=== PATIENT | female | born 1935 | race Caucasian/White ===

== ENCOUNTER 2018-05-22 10:00 | Inpatient (IN) ==
[2018-05-22] MEDS ORDERED: ALPRAZolam 1 MG TABLET PO PRN (12:42)
[2018-05-22] MEDS ORDERED: Nitroglycerin 0.4 MG TAB.SUBL SL PRN ×2 (12:53→13:56)
[2018-05-22] MEDS ORDERED: hydrALAZINE 25 MG TABLET PO SCH (13:00)
[2018-05-22] MEDS ORDERED: Lactulose Oral Soln 20 GM/30 ML UDC PO PRN (13:03)
[2018-05-22] MEDS ORDERED: Polyethylene Glycol 3350 255 GM POWDER PO ONE (13:34)
[2018-05-22] MEDS ORDERED: *HR* Promethazine 25 MG/ML VIAL IVP PRN (13:36)
[2018-05-22] MEDS: Diltiazem CD (24hr) 120 MG CAPSULE PO SCH (13:52)
--- NOTE | 2018-05-22 13:52 | General Surg History&Physical ---
Date of Encounter: 05/22/18 Time of Encounter: 13:49 Assessment and Plan (1) Fistula Current Visit: Yes Status: Acute Noted vesical vaginal fistula. She was seen by Dr. Hughes on 04/13/2018 (recommendations, risks, and benfits were reviewed with patient and her at that time and consent was signed) and surgery was scheduled , but patient did not complete bowel prep (pt is confused at baseline). Surgery was rescheduled to 05/23 and she was recommended to complete bowel prep as an inpatient. Will plan for robotic sigmoind colon resection, possible open w/repair of vesical vaginal fistula with Dr. Hughes on 05/23/2018. Previously signed consent is placed on the hard chart. Plan CLD NPO after 0001 Bowel prep including neomycin and flagyl IVF Continue home meds GI and DVT prophylaxis (2) ASHD (arteriosclerotic heart disease) Current Visit: Yes Status: Acute The assessment and plan as outlined above was discussed with the patient and/or family members who expressed understanding and agreement. All questions were answered. History of unspecified CHF. Will closely monitor Hold ASA tonight (3) Anemia Current Visit: No Status: Acute Continue to monitor Qualifiers: Anemia type: unspecified type Qualified Code(s): D64.9 - Anemia, u nspecified (4) CKD (chronic kidney disease) Current Visit: Yes Status: Chronic The assessment and plan as outlined above was discussed with the patient and/or family members who expressed understanding and agreement. All questions were answered. Continue to monitor. Qualifiers: Chronic kidney disease stage: stage 4 (severe) Qualified Code(s): N18.4 - Chronic kidney disease, stage 4 (severe) History of Present Illness Chief complaint: colo-Vesical vaginal fistula HPI: PMH, PSH, past social history reviewed per EMR Ms. Patle is a 82 year old female who presents for robotic sigmoid colon resection, possible open w/repair of vesical vaginal fistula with Dr. Hughes She was seen by Dr. Hughes on 04/13/2018 (recommendations, risks, and benefits were reviewed with patient and her at that time and consent was signed). Surgery was scheduled for , but patient did not complete bowel prep (pt has episodes of confusion at baseline). Surgery was rescheduled to 05/23 and she was recommended to complete bowel prep as an inpatient. She denies fever, chills, DON, dizziness, CP, SOB, abd pain, n/v/d, black, bloody, or tarry stool. She endorses episodes of constipation and stool after she urinates. She reports generalized weakness. Past Med Surg Social Fam HX - Past Medical History Source: old records reviewed Medical history: atrial fibrillation, CHF, COPD, diabetes, hyperlipidemia, hypertension, myocardial infarction, renal disease, thyroid disease, other Additional medical history: right breast surgery, chronic anemia, pe, breast cancer, A. fib, hypothyroid, lumbar fx Psychiatric history: no psych history - Past Surgical History Surgical History: cancer surgery, coronary bypass (CABG), hysterectomy, orthopedic, other, other Additional surgical history: triple bypass, shoulder replacement, bilateral masectomy - Social History Smoking Status: Never smoker Smokeless Tobacco Status: No Alcohol use: none Drug use: none - Family History Father Living Status: Hx Family Cardiac Disorders: Yes Mother Living Status: Hx Family Cardiac Disorders: Yes Brother Living Status: Hx Family Cancer: Yes (brain/ liver/ spine) Medications and Allergies ALPRAZolam [Xanax 1 MG Tablet] 1 mg PO BID PRN 01/20/18 [History] Albuterol Sulfate [Ventolin Hfa] 2 puff IH Q4HR PRN 01/20/18 [History] Aspirin [Lo-Dose Aspirin EC] 81 mg PO DAILY 01/20/18 [History] Atorvastatin [Lipitor] 40 mg PO HS 01/20/18 [History] Carvedilol [Coreg] 6.25 mg PO BID 01/20/18 [History] Cholecalciferol (D-3) [Vitamin D] 2,000 unit PO BID 01/20/18 [History] Insulin Aspart Prot/Insuln Asp [Novolog Mix 70-30 Flexpen Syrn] 12 unit SQ DAILY 01/20/18 [History] Isosorbide MONOnitrate (24 HR) [Imdur] 60 mg PO DAILY 01/20/18 [History] Levothyroxine [Synthroid] 75 mcg PO 0630 01/20/18 [History] Losartan Potassium [Cozaar] 50 mg PO BID 01/20/18 [History] Potassium Chloride [K-Tab ER] 20 meq PO TID 01/20/18 [History] hydrALAZINE [HydrALAZINE] 25 mg PO Q8H 01/20/18 [History] Furosemide [Lasix] 40 mg PO TID 02/03/18 [History] Nitroglycerin [Nitrostat] 0.4 mg SL PER PKG DI PRN 02/03/18 [History] Letrozole [Femara] 2.5 mg PO DAILY #30 tablet 02/07/18 [Rx] Insulin Aspart Prot/Insuln Asp [Novolog Mix 70-30 Flexpen Syrn] 16 unit SQ QPM 0 03/20/18 [History] Diltiazem CD (24hr) [Cardizem CD] 120 mg PO DAILY #1 cap.er.24h 03/21/18 [Rx] Lactulose 15 mg PO TID 05/09/18 [History] Lidocaine Patch [Lidoderm 5% patch] 1 patch TD Q12H PRN 05/09/18 [History] Oxycodone HCl/Acetaminophen [Percocet 10-325 mg Tablet] 1 tab PO Q6HR PRN 05/09/18 [History] Cyclobenzaprine HCl 5 mg PO HS PRN 05/22/18 [History] Allergy/AdvReac Type Severity Reaction Status Date / Time adhesive tape Allergy Blister Verified 05/09/18 07:24 hydrocodone [From [place]] Allergy See Verified 05/09/18 07:24 Comments iron Allergy Hives Verified 05/09/18 07:24 latex Allergy Blister Verified 05/09/18 07:24 Penicillins Allergy NAUSEA,SWEL Verified 05/09/18 07:24 LING zinc Allergy Blister Verified 05/09/18 07:24 Sulfa (Sulfonamide AdvReac Nausea Verified 05/09/18 07:24 Antibiotics) Review of Systems All systems PM: reviewed and no additional remarkable complaints except as stated All systems PM: The remainder of the systems were reviewed and are negative General Surgery Exam Initial Vital Signs Temp Pulse Resp BP Pulse Ox 98.3 F 72 19 149/71 98 05/22/18 10:05 05/22/18 10:05 05/22/18 10:05 05/22/18 10:05 05/22/18 10:05 - General physical appearance no distress, no pain - Neck trachea midline, no venous distension - Respiratory normal expansion, normal respiratory effort, clear to percussion, clear to auscultation - Cardiovascular Cardiovascular exam: Present: murmurs, distant heart sounds - Abdomen Abdomen general surgery: Present: bowel sounds present, soft, non tender - Integumentary Integumentary general surgery: Present: warm and dry - Neurologic Present: normal coordination, normal sensation - Musculoskeletal Present: normal posture - Psychiatric Psychiatric general surgery: Present: A&Ox3, appropriate Results - Labs 05/22/18 13:59 All other labs normal.
[2018-05-22 14:19] LABS: Basophils % 0.4 %; Eosinophils # 0.3 K/mcL (0.0-0.6); Eosinophils % 3.9 %; Hematocrit 28.1 % (35.3-44.9); Hemoglobin 8.4 g/dL (11.5-15.4); Immature Granulocytes % 1.1 % (0-4); Lymphocytes # 0.9 K/mcL (0.6-4.6); Lymphocytes % 12.9 %; Mean Corpuscular HGB Conc 29.9 g/dL (31.6-35.5); Mean Corpuscular Hemoglobin 25.1 pg (28.0-33.3); Mean Corpuscular Volume 84.1 fL (83.0-100.0); Monocytes # 0.6 K/mcL (0.0-1.3); Monocytes % 7.6 %; Neutrophils # 5.3 K/mcL (1.6-8.9); Platelet Count 465 K/mcL (140-400); Red Blood Count 3.34 M/mcL (3.82-4.97); Red Cell Distribution Width 16.3 % (11.5-14.5); Segmented Neutrophils % 74.1 %
[2018-05-22] MEDS: hydrALAZINE 25 MG TABLET PO SCH ×2 (14:22→21:02)
[2018-05-22] MEDS: metroNIDAZOLE 500 MG TABLET PO SCH ×3 (14:28→21:03)
[2018-05-22] MEDS: *HR* OxyCODONE/APAP 10/325 TABLET PO PRN (14:28)
[2018-05-22 14:29] LABS: Prothrombin Time 11.4 Seconds (9.4-12.1)
[2018-05-22 14:39] LABS: Calcium 9.5 mg/dL (8.6-10.3); Potassium 4.2 mEq/L (3.5-5.1)
[2018-05-22] MEDS ORDERED: Furosemide 40 MG TABLET PO SCH (15:00)
[2018-05-22] MEDS: 0.9 % Sodium Chloride 1,000 ML IVC SCH (17:07)
[2018-05-22] MEDS: Ondansetron 4 MG/2 ML VIAL IVP PRN (17:08)
[2018-05-22] MEDS: Furosemide 40 MG TABLET PO SCH (17:08)
[2018-05-22] MEDS ORDERED: Insulin NPH/REG 70/30 100 UNIT/ML (x5UNIT) SQ SCH (18:00)
--- NOTE | 2018-05-22 22:09 | Anesthesia Evaluation PreOp ---
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%), HTN, Hyperlipidemia, Arrhythmia (A fib), Cardiac Surgery (bypass x 3 in 2014), Other (moderate to severe pulmonary htn) Pulmonary History: COPD HEALTH CLINICIAN History: Denies Any Significant HX Other Medical History: Renal (stage IV ckd), Thyroid (hypothyroidism) Anesthesia History: Past Anesthesia (R total knee, L total shoulder, kypho, hysterectomy, cardiac bypass) Alcohol Use: none Drug use: none Medications and Allergies ALPRAZolam [Xanax 1 MG Tablet] 1 mg PO BID PRN 01/20/18 [History] Albuterol Sulfate [Ventolin Hfa] 2 puff IH Q4HR PRN 01/20/18 [History] Aspirin [Lo-Dose Aspirin EC] 81 mg PO DAILY 01/20/18 [History] Atorvastatin [Lipitor] 40 mg PO HS 01/20/18 [History] Carvedilol [Coreg] 6.25 mg PO BID 01/20/18 [History] Cholecalciferol (D-3) [Vitamin D] 2,000 unit PO BID 01/20/18 [History] Insulin Aspart Prot/Insuln Asp [Novolog Mix 70-30 Flexpen Syrn] 12 unit SQ DAILY 01/20/18 [History] Isosorbide MONOnitrate (24 HR) [Imdur] 60 mg PO DAILY 01/20/18 [History] Levothyroxine [Synthroid] 75 mcg PO 0630 01/20/18 [History] Losartan Potassium [Cozaar] 50 mg PO BID 01/20/18 [History] Potassium Chloride [K-Tab ER] 20 meq PO TID 01/20/18 [History] hydrALAZINE [HydrALAZINE] 25 mg PO Q8H 01/20/18 [History] Furosemide [Lasix] 40 mg PO TID 02/03/18 [History] Nitroglycerin [Nitrostat] 0.4 mg SL PER PKG DI PRN 02/03/18 [History] Letrozole [Femara] 2.5 mg PO DAILY #30 tablet 02/07/18 [Rx] Insulin Aspart Prot/Insuln Asp [Novolog Mix 70-30 Flexpen Syrn] 16 unit SQ QPM 03/20/18 [History] Diltiazem CD (24hr) [Cardizem CD] 120 mg PO DAILY #1 cap.er.24h 03/21/18 [Rx] Lactulose 15 mg PO TID 05/09/18 [History] Lidocaine Patch [Lidoderm 5% patch] 1 patch TD Q12H PRN 05/09/18 [History] Oxycodone HCl/Acetaminophen [Percocet 10-325 mg Tablet] 1 tab PO Q6HR PRN 05/09/18 [History] Cyclobenzaprine HCl 5 mg PO HS PRN 05/22/18 [History] Allergy/AdvReac Type Severity Reaction Status Date / Time adhesive tape Allergy Blister Verified 05/09/18 07:24 hydrocodone [From [place]] Allergy See Verified 05/09/18 07:24 Comments iron Allergy Hives Verified 05/09/18 07:24 latex Allergy Blister Verified 05/09/18 07:24 Penicillins Allergy NAUSEA,SWEL Verified 05/09/18 07:24 LING zinc Allergy Blister Verified 05/09/18 07:24 Sulfa (Sulfonamide AdvReac Nausea Verified 05/09/18 07:24 Antibiotics) - Meds/Allergy Pre-op Review Medications Reviewed: Yes Allergies Reviewed: Yes Beta Blockers on Current Med List: Yes (coreg) If Beta Blockers taken, Date/Time (Last Dose taken): 05-22-18 coreg 17:08 Anesthesia Results - Labs 05/22/18 13:59 05/22/18 13:59 - Imaging EKG: report reviewed, image reviewed (LIMB LEAD REVERSAL LIKEY, PLEASE REPEAT ECG. SINUS BRADYCARDIA WITH MARKED SINUS ARRHYTHMIA INTRAVENTRICULAR CONDUCTION DELAY POSSIBLE ANTERIOR MYOCARDIAL INFARCTION, age indeterminate) Additional studies: 04/23/2018 Impression: Pharmacologic stress ECG is non-diagnostic for ischemia due to submaximal HR. Gated EF = 50%. Medium sized, moderate to severe intensity, fixed defect in the mid to apical inferior, apical septal, and apical lateral segments suggestive of a prior infarct. Perfusion imaging was negative for ischemia. 04/16/2018 Impressions: LVEF 45%. Not all LV segments were well visualized, but overall LVEF appeared mildly reduced. Mildly dilated left ventricle. Mild concentric left ventricular hypertrophy. Mild left ventricular diastolic dysfunction. Atypical septal motion consistent with post-operative status. Normal right ventricular structure and function. Mild mitral regurgitation. Moderate tricuspid regurgitation. Moderate-severe pulmonary hypertension. Anesthesia Exam Last Vital Signs Temp 97.5 F L 05/22/18 20:24 Pulse 83 05/22/18 20:24 Resp 14 05/22/18 20:24 BP 112/58 05/22/18 20:24 Pulse Ox 99 05/22/18 20:24 Weight: 76 kg - HEENT Pupil (Motor): Pupils equal, EOMI Mallampati: II Teeth: Missing, Poor dentition Oral Opening: Greater than 3 - HEALTH CLINICIAN LOC: Oriented - Cardiac Rhythm: Regular Murmur: None - Pulmonary Breath Sounds: bilateral Clear Respiratory Effort: Symmetrical Anesthesia Assess/Plan ASA Score: 4 Anesthetic Plan: General Monitoring Plan: Standard Monitors Recovery Plan: PACU <Yoni Lynne - Last Filed: 05/23/18 13:02> Date of Encounter: 05/23/18 Time of Encounter: 12:58 Anesthesia Results - Labs 05/22/18 13:59 05/22/18 13:59 Laboratory Last Values WBC 7.2 K/mcL (4.3-11.1) 05/22/18 13:59 RBC 3.34 M/mcL (3.82-4.97) L 05/22/18 13:59 Hgb 8.4 g/dL (11.5-15.4) L 05/22/18 13:59 Hct 28.1 % (35.3-44.9) L 05/22/18 13:59 MCV 84.1 fL (83.0-100.0) 05/22/18 13:59 MCH 25.1 pg (28.0-33.3) L 05/22/18 13:59 MCHC 29.9 g/dL (31.6-35.5) L 05/22/18 13:59 RDW 16.3 % (11.5-14.5) H 05/22/18 13:59 Plt Count 465 K/mcL (140-400) H 05/22/18 13:59 MPV 9.0 fL (9.4-12.4) L 05/22/18 13:59 Immature Gran % 1.1 % (0-4) 05/22/18 13:59 Seg Neutrophils % 74.1 % 05/22/18 13:59 Lymphocytes % 12.9 % 05/22/18 13:59 Monocytes % 7.6 % 05/22/18 13:59 Eosinophils % 3.9 % 05/22/18 13:59 Basophils % 0.4 % 05/22/18 13:59 Neutrophils # 5.3 K/mcL (1.6-8.9) 05/22/18 13:59 Lymphocytes # 0.9 K/mcL (0.6-4.6) 05/22/18 13:59 Monocytes # 0.6 K/mcL (0.0-1.3) 05/22/18 13:59 Eosinophils # 0.3 K/mcL (0.0-0.6) 05/22/18 13:59 Basophils # 0.0 K/mcL (0.0-0.2) 05/22/18 13:59 PT 11.4 Seconds (9.4-12.1) 05/22/18 13:59 INR 1.0 05/22/18 13:59 APTT 32.0 Seconds (26.0-36.0) 05/22/18 13:59 Sodium 134 mEq/L (136-145) L 05/22/18 13:59 Potassium 4.2 mEq/L (3.5-5.1) 05/22/18 13:59 Chloride 98 mEq/L (98-107) 05/22/18 13:59 Carbon Dioxide 26 mEq/L (23-29) 05/22/18 13:59 BUN 33 mg/dL (8-23) H 05/22/18 13:59 Creatinine 2.14 mg/dL (0.60-1.20) H 05/22/18 13:59 Est GFR ( Amer) 27 (> 60) L 05/22/18 13:59 Est GFR (Non-Af Amer) 22 (> 60) L 05/22/18 13:59 BUN/Creatinine Ratio 15 (6-26) 05/22/18 13:59 Glucose 204 mg/dL (70-105) H 05/22/18 13:59 POC Glucose 141 mg/dL (70-99) H 05/23/18 10:28 Calculated Osmolality 291 (280-300) 05/22/18 13:59 Calcium 9.5 mg/dL (8.6-10.3) 05/22/18 13:59 Prealbumin 13.5 mg/dL (17.0-34.0) L 05/22/18 13:59 Blood Type A POSITIVE 05/23/18 04:23 Antibody Screen NEGATIVE 05/23/18 04:23 Anesthesia Exam Vital Signs/O2 Sat/Glucose, Most Recent Temp Pulse Resp BP Pulse Ox 98.3 F 79 20 155/64 92 05/23/18 10:40 05/23/18 10:40 05/23/18 10:40 05/23/18 10:40 05/23/18 10:40 Blood Glucose* 141 Weight: 76 kg - BMI 28 NPO (# of Hours): 8 - Additional Findings Active Medications Albuterol Sulfate (Albuterol Inhaler) 2 puff IH Q4HR PRN PRN Reason: wheezing/shortness of breath Stop: 11/21/18 12:43 Alprazolam (Xanax) 1 mg PO BID PRN; Protocol PRN Reason: Anxiety Stop: 11/21/18 12:43 Atorvastatin Calcium (Lipitor) 40 mg PO HS [facility] Stop: 11/21/18 21:01 Last Admin: 05/22/18 21:02 Dose: 40 mg Carvedilol (Coreg) 6.25 mg PO BIDWM [facility]; Protocol Stop: 11/21/18 17:01 Last Admin: 05/23/18 07:41 Dose: 6.25 mg Cyclobenzaprine HCl (Flexeril) 5 mg PO HS PRN PRN Reason: Muscle Spasm Diltiazem HCl (Cardizem Cd) 120 mg PO DAILY [facility] Stop: 11/21/18 12:46 Last Admin: 05/23/18 07:41 Dose: 120 mg Furosemide (Lasix) 40 mg PO TIDDIURETIC [facility] Stop: 11/21/18 17:01 Last Admin: 05/23/18 08:23 Dose: Not Given Hydralazine HCl (Hydralazine) 25 mg PO TID [facility] Stop: 11/21/18 15:01 Last Admin: 05/23/18 07:42 Dose: 25 mg Sodium Chloride (0.9 % Sodium Chloride) 1,000 mls @ 75 mls/hr IVC .[id number] [facility] Stop: 11/21/18 13:46 Last Admin: 05/22/18 17:07 Dose: 75 mls/hr Insulin Isophane/Insulin Regular (Humulin 70/30 Vial) 12 unit SQ 0730 [facility] Stop: 11/22/18 07:31 Last Admin: 05/23/18 08:14 Dose: Not Given Insulin Isophane/Insulin Regular (Humulin 70/30 Vial) 16 unit SQ 1630 [facility] Stop: 11/22/18 16:31 Isosorbide Mononitrate (Imdur) 60 mg PO DAILY [facility] Stop: 11/22/18 09:01 Last Admin: 05/23/18 07:42 Dose: 60 mg Lactulose (Lactulose) 15 gm PO HS PRN PRN Reason: Constipation Stop: 11/21/18 13:04 Letrozole (Femara) 2.5 mg PO DAILY [facility] Stop: 11/22/18 09:01 Last Admin: 05/23/18 07:46 Dose: 2.5 mg Levothyroxine Sodium (Synthroid) 75 mcg PO 0630 [facility] Stop: 11/22/18 06:31 Last Admin: 05/23/18 05:53 Dose: 75 mcg Losartan Potassium (Cozaar) 50 mg PO BID [facility] Stop: 11/21/18 21:01 Last Admin: 05/23/18 09:54 Dose: Not Given Metronidazole (Flagyl) 500 mg PO 1400,1500,2200 [facility]; Protocol Stop: 05/24/18 23:00 Last Admin: 05/22/18 21:03 Dose: 500 mg Neomycin Sulfate (Neomycin) 500 mg PO 1400,1500,2200 [facility] Stop: 05/24/18 23:00 Last Admin: 05/22/18 21:00 Dose: 500 mg Ondansetron HCl (Zofran) 4 mg IVP Q6HR PRN PRN Reason: Nausea And Vomiting Stop: 11/21/18 13:37 Last Admin: 05/23/18 07:46 Dose: 4 mg Oxycodone/Acetaminophen (Percocet 10/325) 1 each PO Q6HR PRN PRN Reason: mild to moderate pain Stop: 11/21/18 12:54 Last Admin: 05/23/18 07:38 Dose: 1 each Pantoprazole Sodium (Protonix) 40 mg IVP DAILY [facility] Stop: 11/22/18 09:01 Last Admin: 05/23/18 07:46 Dose: 40 mg Anesthesia Assess/Plan Monitoring Plan: A-Line, CVC Anes Supervising Prov Stmt: PATIENT WILL PROBABLY NEED PRBC TRANSFUSION. POSSIBLE POST OP MECH VENTILATION, POSSIBLE ICU ADMISSION. Patient informed and consented. Risks, benefits, and alternatives discussed. Patient wishes to proceed.
[2018-05-23] MEDS: Cholecalciferol (D-3) 1,000 UNIT TABLET PO SCH ×3 (05:32→09:54)
[2018-05-23] MEDS: *HR* OxyCODONE/APAP 10/325 TABLET PO PRN ×2 (07:38→23:20)
[2018-05-23] MEDS: Diltiazem CD (24hr) 120 MG CAPSULE PO SCH (07:41)
[2018-05-23] MEDS: Furosemide 40 MG TABLET PO SCH ×3 (07:42→19:04)
[2018-05-23] MEDS: hydrALAZINE 25 MG TABLET PO SCH ×3 (07:42→19:06)
[2018-05-23] MEDS: Ondansetron 4 MG/2 ML VIAL IVP PRN (07:46)
[2018-05-23] MEDS: Insulin NPH/REG 70/30 100 UNIT/ML (x5UNIT) SQ SCH (08:14)
[2018-05-23] MEDS ORDERED: Letrozole 2.5 MG TABLET PO SCH (09:00)
[2018-05-23] MEDS ORDERED: Insulin NPH/REG 70/30 100 UNIT/ML (x5UNIT) SQ SCH ×2 (09:00→16:30)
[2018-05-23] MEDS ORDERED: Pantoprazole 40 MG VIAL IVP SCH (09:00)
[2018-05-23] MEDS ORDERED: Aspirin Enteric Coated 81 MG Tablet PO SCH (09:00)
[2018-05-23] MEDS ORDERED: Isosorbide MONOnitrate (24 HR) 60 MG TAB.ER.24H PO SCH (09:00)
[2018-05-23] MEDS ORDERED: Heparin 1,000 UNITS/500 mL 500 ML ONE (12:41)
[2018-05-23] MEDS ORDERED: CefOXitin 2,000 MG VIAL ONE (13:21)
--- NOTE | 2018-05-23 14:27 | Anesthesia Procedures ---
Date of Encounter: 05/23/18 Time of Encounter: 14:22 Procedures: Anesthesia - Arterial Line Consent obtained: written consent Time out performed: Yes Sedation: Versed (mg): 1 Supplemental Oxygen via Nasal Cannula (L/min): 2 Local Anesthetic: Lidocaine 1% Amount of Anesthetic used (mls): 2 Size (Gauge): 20 Length (inches): 1 3/4 Technique Used: sterile prep, direct puncture technique (20 ga Arrow catheter over needle and guidewire) Post-Procedure: line taped into place Patient tolerated procedure: well Complications: none Site: Radial L - Central Line Placement Right SC Consent obtained: written consent Time out performed: Yes Patient placed on monitor/pulse ox: Yes Supplemental Oxygen via Nasal Cannula (L/min): 2 MD prep: mask, gown, gloves, other ([facility] hand hygiene, skull cap) Central line prep: Chlorhexidine scrub, sterile drapes applied (Full body drape) Local Anesthetic Used: Lidocaine 1% Amount of Anesthetics Used (mls): 5 Technique: Seldinger (Difficult placement, vein punctures x3, only able to pass wire on third attempt. Suspect narrow SC vein. ) Lumen Inserted: triple Size / Length: 7 Fr / 16 cm (Pressure Injectable) Post procedure: sutured in place (3/0 silk suture), good blood return, all ports aspirated, flushed, capped, sterile dressing applied (with [facility] biopatch) Post procedure x-ray: tip of catheter in good position, no pneumothorax seen Patient tolerated procedure: well Complications: none
[2018-05-23] MEDS ORDERED: Isovue-300 150 ML INFUS..BTL ONE (16:43)
[2018-05-23] MEDS ORDERED: SUGAMMADEX SODIUM 500 MG/5 ML VIAL IV ONE (17:09)
--- NOTE | 2018-05-23 17:18 | Operative Note ---
Date of procedure: 05/23/18 Pre-op diagnosis: Colovaginal and Colovesical fistula Post-op diagnosis: same Procedure: Cystoscopy, bilateral ureteral catheterization Anesthesia: GETA Surgeon: Bin Dozier Was there an student assistant present: No Estimated blood loss (cc): 0 Specimen: none Condition: stable Disposition: PACU Procedure in Detail: An 82-year-old lady undergoing a robotic surgical address of colovaginal and colovesical fistulas by Dr. Hughes. Due to dissection close to the right ureter I was asked for intraoperative consultation. I entered the operative theratre and viewed the anatomy from the robotic camera. No apparent ureteral injury was immediately evident on gross inspection. I filled the bladder by guerrero and no spillage into the operative field. Based on the complex nature of the procedure, significant perivesical and periureteral dissection in inflammation, it was my recommendation to place bilateral ureteral stents with drainage into a guerrero catheter and to maintain this type of drainage for 7-10 days in a effort to divert as much urine as possible from the bladder and to maintain upper tract drainage. Dr. Hughes agreed. Based on these findings the following procedure was recommended. The cystoscope was inserted into the urethra and advanced into the bladder. No urethral abnormalities were appreciated. The bladder had no suspicious lesion for cancer. Immediately posterior and slightly to the left there was a small inflammatory area without fistula. The ureteral orifices were identified bilaterally. 5 syriac open ended catheters were advance to 23cm bilaterally. The cystoscope was removed. A guerrero was placed and secured with saline in the balloon. The open-ended cahteters were tunneled through the guerrero into the drainage tubing. The catheters were secured to the guerrero with 2 silk ligatures. This ended the urologic portion of the operative procedure. The patent was returned to the care of Dr. Hughes for the completion of the primary procedure. There were no complications. No blood was lost. Urologic surgery was well t olerated.
--- NOTE | 2018-05-23 17:23 | Operative Note ---
Date of procedure: 05/23/18 Pre-op diagnosis: Colovaginal fistula Post-op diagnosis: same Procedure: Robotic sigmoid resection with ruvalcaba's Lysis of adhesions x 1 hour Anesthesia: MILAN Surgeon: Bill Hughes Was there an blacksmith assistant present: Yes Glass Cleaning Machine Tender: Chelsi Camacho Estimated blood loss (cc): 25 Specimen: sigmoid colon Condition: stable Disposition: same day Procedure in Detail: After informed consent, the patient was taken the operating room placed in supine position. After adequate sedation anesthesia she was placed in lithotomy position. She had radha stool draining from her vagina. Patient underwent placement of a Piña catheter. Once catheter was in place the abdomen was prepped and draped. 2 towel clamps are placed at the umbilicus and a Verres needle was inserted and the abdomen. Pneumoperitoneum was created. 12 mm zeenat kunal was then inserted under direct visualization. Once in place additional 8 mm cannulas 2 were placed. A 13 mm cannulas placed as well as the right lower quadrant. Once all ports were placed in the robot was docked over the patient's right hip. Lisinopril adhesions 1 hours performed to free the omentum as well as the sigmoid colon from the dome of the bladder and the left hemipelvis. Sharp dissection was carried out with robotic scissors using sharp and electrocautery and the cut mode. The inferior mesenteric artery was identified and it was taken with a vessel sealer. The left ureter was then identified coursing over the left iliac artery. He was kept out of harm's way and dissected free of some significant inflammation identified at the sigmoid colon. The dissection was carried out in the sacral hollow and then anteriorly as well between the posterior vagina. There was a significant opening into the vaginal wall which had radha stool and food material identified at its opening. This was retrieved. Once a clean plane was identified in the rectum it was stapled with a reaming load utilizing 45 mm loads. This formed 3 and it was eventually resected pelvis. Due to the intense inflammation and the large opening in the vagina made decision to perform an end ostomy. An intraoperative consultation was asked of Dr. Dozier. He was a perform cystoscopy and place ureteral stents as well as a Piña catheter for drainage of the bladder. We did test the bladder intraoperatively and did not identify any leakage of saline from its dome. Once this was completed then a ostomy site was created on the left abdominal wall colon was retrieved through this opening. A Simeon bowel clamp was used to secure the proximal portion of colon was transected and the specimen was sent to pathology. The ostomy was then matured onto the left abdominal wall. The 12 mm cannula site and 13 mm cannula site were closed with 0 Vicryl sutures. A drain was placed and brought out through one of the 8 mm sites. All incisions are closed with nikki.
[2018-05-23] MEDS ORDERED: *HR* OxyCODONE Immed Rel 5 MG TABLET PO PRN (17:59)
[2018-05-23] MEDS ORDERED: *HR* Promethazine 25 MG/ML VIAL IVP PRN ×2 (17:59→19:10)
[2018-05-23] MEDS ORDERED: Ondansetron 4 MG/2 ML VIAL IVP ONE (17:59)
[2018-05-23] MEDS ORDERED: *HR* HYDROmorphone (PF) 1 MG/ML SYRINGE IVP PRN (17:59)
[2018-05-23] MEDS: 0.9 % Sodium Chloride 1,000 ML IVC SCH ×2 (19:03→20:40)
[2018-05-23] MEDS: metroNIDAZOLE 500 MG TABLET PO SCH (19:04)
[2018-05-23] MEDS ORDERED: Lactulose Oral Soln 20 GM/30 ML UDC PO PRN (19:10)
[2018-05-23] MEDS ORDERED: Nitroglycerin 0.4 MG TAB.SUBL SL PRN (19:10)
[2018-05-23] MEDS: ALPRAZolam 1 MG TABLET PO PRN (20:40)
[2018-05-23] MEDS ORDERED: metroNIDAZOLE 500 MG TABLET PO SCH (22:00)
[2018-05-24] MEDS ORDERED: traMADol 50 MG TABLET PO ONE (01:47)
[2018-05-24] MEDS: *HR* OxyCODONE/APAP 10/325 TABLET PO PRN ×3 (05:59→20:55)
[2018-05-24] MEDS: hydrALAZINE 25 MG TABLET PO SCH ×4 (06:00→20:56)
[2018-05-24 06:32] LABS: Basophils % 0.1 %; Hematocrit 24.7 % (35.3-44.9); Hemoglobin 7.4 g/dL (11.5-15.4); Immature Granulocytes % 0.4 % (0-4); Lymphocytes # 0.4 K/mcL (0.6-4.6); Lymphocytes % 2.1 %; Mean Corpuscular Hemoglobin 25.5 pg (28.0-33.3); Mean Corpuscular Volume 85.2 fL (83.0-100.0); Mean Platelet Volume 9.3 fL (9.4-12.4); Monocytes # 0.3 K/mcL (0.0-1.3); Monocytes % 1.8 %; Neutrophils # 16.4 K/mcL (1.6-8.9); Platelet Count 435 K/mcL (140-400); Red Cell Distribution Width 16.3 % (11.5-14.5); Segmented Neutrophils % 95.6 %
[2018-05-24 06:41] LABS: Calcium 8.8 mg/dL (8.6-10.3); Potassium 4.6 mEq/L (3.5-5.1)
[2018-05-24] MEDS: Letrozole 2.5 MG TABLET PO SCH (08:18)
[2018-05-24] MEDS: Pantoprazole 40 MG VIAL IVP SCH (08:18)
[2018-05-24] MEDS: Furosemide 40 MG TABLET PO SCH ×3 (08:21→18:19)
[2018-05-24] MEDS: Diltiazem CD (24hr) 120 MG CAPSULE PO SCH (08:22)
[2018-05-24] MEDS: Isosorbide MONOnitrate (24 HR) 60 MG TAB.ER.24H PO SCH (08:22)
[2018-05-24] MEDS: Cholecalciferol (D-3) 1,000 UNIT TABLET PO SCH (08:22)
[2018-05-24] MEDS: Insulin NPH/REG 70/30 100 UNIT/ML (x5UNIT) SQ SCH ×3 (08:32→18:22)
[2018-05-24] MEDS: Ondansetron 4 MG/2 ML VIAL IVP PRN ×2 (08:35→14:50)
[2018-05-24] MEDS: 0.9 % Sodium Chloride 1,000 ML IVC SCH (09:57)
--- NOTE | 2018-05-24 10:17 | General Surgery Progress Note ---
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 She admits to some abdominal pain this morning. She is tolerating her diet well. She denies nausea, vomiting, CP, SOB, fevers/chills. Objective Vital Signs - Last 8 Hours Temp Pulse Resp BP Pulse Ox 05/24/18 08:13 98.4 F 84 16 133/66 96 05/24/18 05:07 98.9 F 87 15 155/52 96 Intake and Output 05/23/18 05/24/18 05/24/18 23:59 07:59 15:59 Intake Total 100 / 100 340 / 340 1000 / 1000 Output Total 605 / 605 530 / 530 240 / 240 Balance -505 / -505 -190 / -190 760 / 760 Intake: IV Fluids 1000 / 1000 0.9 % Sodium Chloride 1,000 ML 1000 / 1000 @ 75 mls/hr IVC .[id number] [facility] Rx #:[id number] Oral 100 / 100 340 / 340 Output: Urine 0 / 0 Estimated Blood Loss 25 / 25 Catheter 400 / 400 450 / 450 200 / 200 Wound Drainage 180 / 180 80 / 80 40 / 40 BRANNON Drain Lower right abdomen 180 / 180 80 / 80 40 / 40 Other: Weight 79.8 kg Blood Glucose* 275 310 - General physical appearance well developed - Respiratory normal expansion, normal respiratory effort - Cardiovascular Cardiovascular exam: Present: RRR - Abdomen Abdomen: Present: bowel sounds present, soft, tender Abdominal Tenderness: diffusely Additional Comments: Ostomy with small amount of bloody liquid, no stool, mucosa is pink and mildly edematous BRANNON drain with ~50 ml bloody output in bulb - Incision Incision: Present: clean and dry, intact - Genitourinary other (guerrero bag with bloody urine) - Integumentary no rash - Psychiatric oriented to time, oriented to person, oriented to place - Labs 05/24/18 05:46 05/24/18 05:46 Diabetes panel 05/24/18 Range/Units 05:46 Sodium 131 L (136-145) mEq/L Potassium 4.6 (3.5-5.1) mEq/L Chloride 99 (98-107) mEq/L Carbon Dioxide 25 (23-29) mEq/L BUN 20 (8-23) mg/dL Creatinine 1.60 H (0.60-1.20) mg/dL Glucose 278 H (70-105) mg/dL Calcium 8.8 (8.6-10.3) mg/dL Calcium panel 05/24/18 Range/Units 05:46 Calcium 8.8 (8.6-10.3) mg/dL Pituitary panel 05/24/18 Range/Units 05:46 Sodium 131 L (136-145) mEq/L Potassium 4.6 (3.5-5.1) mEq/L Chloride 99 (98-107) mEq/L Carbon Dioxide 25 (23-29) mEq/L BUN 20 (8-23) mg/dL Creatinine 1.60 H (0.60-1.20) mg/dL Glucose 278 H (70-105) mg/dL Calcium 8.8 (8.6-10.3) mg/dL Adrenal panel 05/24/18 Range/Units 05:46 Sodium 131 L (136-145) mEq/L Potassium 4.6 (3.5-5.1) mEq/L Chloride 99 (98-107) mEq/L Carbon Dioxide 25 (23-29) mEq/L BUN 20 (8-23) mg/dL Creatinine 1.60 H (0.60-1.20) mg/dL Glucose 278 H (70-105) mg/dL Calcium 8.8 (8.6-10.3) mg/dL Consult Discharge Plan - Plan Referrals: Kalyani Chase MD [Primary Care Provider] -
[2018-05-24] MEDS ORDERED: OXYCODONE Oral CONC 10 MG/0.5 ML ORAL.SYG SL PRN (13:28)
[2018-05-24] MEDS ORDERED: Acetaminophen IV 500 MG/50 ML INFUS..BTL IVPB ONE (14:05)
[2018-05-24] MEDS: metroNIDAZOLE 500 MG TABLET PO SCH ×2 (14:43→20:54)
[2018-05-25] MEDS: metroNIDAZOLE 500 MG TABLET PO SCH ×3 (06:09→21:44)
[2018-05-25] MEDS: *HR* OxyCODONE/APAP 10/325 TABLET PO PRN ×3 (06:11→21:47)
[2018-05-25 06:57] LABS: Hematocrit 19.3 % (35.3-44.9); Mean Corpuscular Hemoglobin 25.1 pg (28.0-33.3); Mean Corpuscular Volume 86.5 fL (83.0-100.0); Mean Platelet Volume 9.5 fL (9.4-12.4); Platelet Count 334 K/mcL (140-400); Red Blood Count 2.23 M/mcL (3.82-4.97); Red Cell Distribution Width 16.5 % (11.5-14.5)
[2018-05-25 07:15] LABS: Potassium 4.3 mEq/L (3.5-5.1)
[2018-05-25 07:25] LABS: Hemoglobin 5.6 g/dL (11.5-15.4)
[2018-05-25 07:55] LABS: Anisocytosis 2+ (Not Present); Eosinophils # 0.2 K/mcL (0.0-0.6); Lymphocytes # 0.4 K/mcL (0.6-4.6); Monocytes # 0.4 K/mcL (0.0-1.3); Neutrophils # 8.5 K/mcL (1.6-8.9); Poikilocytosis 2+ (Not Present); Rouleaux Present (Not Present)
[2018-05-25] MEDS: Furosemide 40 MG TABLET PO SCH ×3 (08:01→16:26)
[2018-05-25] MEDS: hydrALAZINE 25 MG TABLET PO SCH ×3 (08:01→21:46)
[2018-05-25] MEDS: Cholecalciferol (D-3) 1,000 UNIT TABLET PO SCH (08:01)
[2018-05-25] MEDS: Isosorbide MONOnitrate (24 HR) 60 MG TAB.ER.24H PO SCH (08:01)
[2018-05-25] MEDS: Diltiazem CD (24hr) 120 MG CAPSULE PO SCH (08:02)
[2018-05-25] MEDS: Pantoprazole 40 MG VIAL IVP SCH (08:02)
[2018-05-25] MEDS: 0.9 % Sodium Chloride 1,000 ML IVC SCH ×2 (08:13→13:41)
[2018-05-25] MEDS ORDERED: 0.9 % Sodium Chloride 1,000 ML IVC SCH (08:20)
[2018-05-25] MEDS: Letrozole 2.5 MG TABLET PO SCH (08:28)
[2018-05-25] MEDS: Insulin NPH/REG 70/30 100 UNIT/ML (x5UNIT) SQ SCH ×2 (08:28→16:26)
[2018-05-25] MEDS: Ondansetron 4 MG/2 ML VIAL IVP PRN (11:27)
[2018-05-25] MEDS: ALPRAZolam 1 MG TABLET PO PRN (11:27)
--- NOTE | 2018-05-25 13:09 | General Surgery Progress Note ---
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 Patient is s/p sigmoid resection with ostomy and lysis of adhesions on 05/23 for colovaginal fistula WBC 17.1 > 9.4 BRANNON drain 180 > 170 > 30 ml of radha blood On flagyl (day 4) and neomycin (day 4) Zofran and phenergan for nausea Protonix for GI prophylaxis Oxycodone and norco for pain IVF 75 ml/hr On clear liquid diet Patient's Hgb dropped to 5.6 this morning, from 7.4 yesterday > transfused 2 unit of PRBCs to be transfused, will recheck Hgb and PT/INR after transfusions BP ok at 133/69 Subjective Patient reports: still having pain, tolerating liquids well Narrative: Patient complaining of right sided abdominal pain this morning. She also admits to some nausea, which is improved by the time I saw her. She denies vomiting, CP, SOB, fevers/chills. Objective Vital Signs - Last 8 Hours Temp Pulse Resp BP Pulse Ox 05/25/18 10:45 98.1 F 74 18 131/68 98 05/25/18 08:25 98.4 F 73 19 133/69 97 05/25/18 08:10 98.7 F 74 18 119/64 95 Intake and Output 05/24/18 05/25/18 05/25/18 23:59 07:59 15:59 Intake Total 0 / 0 940 / 940 Output Total 400 / 400 1350 / 1350 730 / 730 Balance -400 / -400 -1350 / -1350 210 / 210 Intake: IV Fluids 0 / 0 Ofirmev 1,000 mg/100 ml 500 mg 0 / 0 In 50 ml @ 200 mls/hr IVPB ONCE ONE Rx#:[id number] Oral 240 / 240 Blood Product 700 / 700 Rbcs Leuko Poor As-3 Ph Unit 700 / 700 [id number] Output: Catheter 350 / 350 1350 / 1350 700 / 700 Wound Drainage 50 / 50 30 / 30 BRANNON Drain Lower right abdomen 50 / 50 30 / 30 Other: Meal Breakfast Weight 80.2 kg Blood Glucose* 165 155 162 Patient Weight 05/25/18 23:59 Weight 80.2 kg - General physical appearance well developed - Respiratory normal expansion, normal respiratory effort - Cardiovascular Cardiovascular exam: Present: RRR - Abdomen Abdomen: Present: bowel sounds present, soft, tender Abdominal Tenderness: RLQ (around BRANNON drain) Additional Comments: BRANNON drain with bloody liquid Colostomy with mildly edematous pink mucosa and small amount of dark red liquid in bag - Incision Incision: Present: clean and dry, intact - Integumentary no rash - Psychiatric oriented to time, oriented to person, oriented to place - Labs 05/25/18 04:50 05/25/18 04:50 Diabetes panel 05/25/18 Range/Units 04:50 Sodium 132 L (136-145) mEq/L Potassium 4.3 (3.5-5.1) mEq/L Chloride 102 (98-107) mEq/L Carbon Dioxide 25 (23-29) mEq/L BUN 19 (8-23) mg/dL Creatinine 1.72 H (0.60-1.20) mg/dL Glucose 128 H (70-105) mg/dL Calcium 8.0 L (8.6-10.3) mg/dL Calcium panel 05/25/18 Range/Units 04:50 Calcium 8.0 L (8.6-10.3) mg/dL Pituitary panel 05/25/18 Range/Units 04:50 Sodium 132 L (136-145) mEq/L Potassium 4.3 (3.5-5.1) mEq/L Chloride 102 (98-107) mEq/L Carbon Dioxide 25 (23-29) mEq/L BUN 19 (8-23) mg/dL Creatinine 1.72 H (0.60-1.20) mg/dL Glucose 128 H (70-105) mg/dL Calcium 8.0 L (8.6-10.3) mg/dL Adrenal panel 05/25/18 Range/Units 04:50 Sodium 132 L (136-145) mEq/L Potassium 4.3 (3.5-5.1) mEq/L Chloride 102 (98-107) mEq/L Carbon Dioxide 25 (23-29) mEq/L BUN 19 (8-23) mg/dL Creatinine 1.72 H (0.60-1.20) mg/dL Glucose 128 H (70-105) mg/dL Calcium 8.0 L (8.6-10.3) mg/dL Consult Discharge Plan - Plan Referrals: Kalyani Chase MD [Primary Care Provider] -
[2018-05-25] MEDS: *HR* HYDROcodone/Acet 5/325 mg TABLET PO PRN (14:55)
[2018-05-25 17:39] LABS: Hematocrit 26.1 % (35.3-44.9)
[2018-05-25 17:42] LABS: Hemoglobin 8.2 g/dL (11.5-15.4)
[2018-05-25 17:48] LABS: INR 1.2; Prothrombin Time 13.7 Seconds (9.4-12.1)
[2018-05-26 01:33] LABS: Basophils % 0.2 %; Eosinophils # 0.1 K/mcL (0.0-0.6); Hematocrit 25.3 % (35.3-44.9); Hemoglobin 7.9 g/dL (11.5-15.4); Immature Granulocytes % 0.9 % (0-4); Immature Platelets 1.1 % (1.1-6.1); Lymphocytes # 0.6 K/mcL (0.6-4.6); Lymphocytes % 6.5 %; Mean Corpuscular HGB Conc 31.2 g/dL (31.6-35.5); Mean Corpuscular Hemoglobin 26.7 pg (28.0-33.3); Mean Corpuscular Volume 85.5 fL (83.0-100.0); Mean Platelet Volume 8.9 fL (9.4-12.4); Monocytes # 0.7 K/mcL (0.0-1.3); Monocytes % 7.7 %; Neutrophils # 7.5 K/mcL (1.6-8.9); Platelet Count 336 K/mcL (140-400); Red Blood Count 2.96 M/mcL (3.82-4.97); Segmented Neutrophils % 83.7 %
[2018-05-26 01:42] LABS: INR 1.3
[2018-05-26 01:51] LABS: Potassium 3.9 mEq/L (3.5-5.1)
[2018-05-26] MEDS: 0.9 % Sodium Chloride 1,000 ML IVC SCH ×3 (04:56→23:59)
[2018-05-26] MEDS: *HR* OxyCODONE/APAP 10/325 TABLET PO PRN ×3 (05:10→20:13)
[2018-05-26] MEDS: metroNIDAZOLE 500 MG TABLET PO SCH (05:10)
[2018-05-26] MEDS: *HR* HYDROcodone/Acet 5/325 mg TABLET PO PRN ×2 (07:54→15:39)
[2018-05-26] MEDS: Diltiazem CD (24hr) 120 MG CAPSULE PO SCH (07:55)
[2018-05-26] MEDS: Isosorbide MONOnitrate (24 HR) 60 MG TAB.ER.24H PO SCH (07:55)
[2018-05-26] MEDS: hydrALAZINE 25 MG TABLET PO SCH ×3 (07:55→20:14)
[2018-05-26] MEDS: Insulin NPH/REG 70/30 100 UNIT/ML (x5UNIT) SQ SCH ×2 (07:55→17:04)
[2018-05-26] MEDS: Pantoprazole 40 MG VIAL IVP SCH (07:55)
[2018-05-26] MEDS: Cholecalciferol (D-3) 1,000 UNIT TABLET PO SCH (07:55)
[2018-05-26] MEDS: Furosemide 40 MG TABLET PO SCH ×3 (07:55→17:03)
--- NOTE | 2018-05-26 09:06 | General Surgery Progress Note ---
Date of Encounter: 05/26/18 Time of Encounter: 08:30 - Assessment and Plan (1) Colovaginal fistula Current Visit: Yes Status: Acute Patient is s/p sigmoid resection with ostomy and lysis of adhesions on 05/23 for colovaginal fistula WBC 9.4 > 9 BRANNON drain 170 > 55 > 35 ml of sanguineous liquid Zofran and phenergan for nausea Protonix for GI prophylaxis Oxycodone and norco for pain IVF 75 ml/hr Advanced to full liquid diet Patient's Hgb dropped to 5.6 this morning, from 7.4 yesterday > transfused 2 unit of PRBCs, repeat Hgb was 8.2 > 7.9 this morning INR 1.2 > 1.3 today BP ok at 122/52 (2) CKD (chronic kidney disease) Current Visit: Yes Status: Chronic Patient's Cr 1.54, down from 2.14 on admission Continue to monitor Qualifiers: Chronic kidney disease stage: stage 4 (severe) Qualified Code(s): N18.4 - Chronic kidney disease, stage 4 (severe) (3) Anemia Current Visit: No Status: Acute Patient has chronic anemia Has needed 2 transfusions of PRBCs during this admission Will continue to monitor Qualifiers: Anemia type: unspecified type Qualified Code(s): D64.9 - Anemia, unspecified Subjective Patient reports: no new complaints, feels better, still having pain, pain is less, tolerating liquids well Narrative: Patient still having some pain this morning, but states it is improved from yesterday. She is tolerating clears and denies nausea, vomiting, CP, SOB, fevers/chills. Objective Vital Signs - Last 8 Hours Temp Pulse Resp BP Pulse Ox 05/26/18 07:50 99.1 F 74 19 143/64 94 Intake and Output 05/25/18 05/26/18 05/26/18 23:59 07:59 15:59 Intake Total 350 / 350 1000 / 1000 Output Total 2925 / 2925 1950 / 1950 35 / 35 Balance -2575 / -2575 -950 / -950 -35 / -35 Intake: IV Fluids 1000 / 1000 0.9 % Sodium Chloride 1,000 ML 1000 / 1000 @ 75 mls/hr IVC .[id number] [facility] Rx #:[id number] Blood Product 350 / 350 Rbcs Leuko Poor As-1 Unit 350 / 350 [id number] Output: Catheter 2900 / 2900 1950 / 1950 Wound Drainage BRANNON Drain Lower right abdomen Other: Weight 80 kg Blood Glucose* 123 86 Patient Weight 05/26/18 23:59 Weight 80 kg - General physical appearance well developed - Respiratory normal expansion, normal respiratory effort - Cardiovascular Cardiovascular exam: Present: RRR - Abdomen Abdomen: Present: bowel sounds present, soft, tender Abdominal Tenderness: RLQ (around BRANNON drain) Additional Comments: BRANNON drain with sanguineous liquid in bulb Colostomy with sanguineous liquid in bag, no stool - Incision Incision: Present: clean and dry, intact - Genitourinary other (guerrero cath with dark orange urine) - Integumentary no rash - Psychiatric oriented to time, oriented to person, oriented to place - Labs 05/26/18 01:00 05/26/18 01:00 Diabetes panel 05/26/18 Range/Units 01:00 Sodium 134 L (136-145) mEq/L Potassium 3.9 (3.5-5.1) mEq/L Chloride 104 (98-107) mEq/L Carbon Dioxide 24 (23-29) mEq/L BUN 17 (8-23) mg/dL Creatinine 1.54 H (0.60-1.20) mg/dL Glucose 72 (70-105) mg/dL Calcium 8.0 L (8.6-10.3) mg/dL Calcium panel 05/26/18 Range/Units 01:00 Calcium 8.0 L (8.6-10.3) mg/dL Pituitary panel 05/26/18 Range/Units 01:00 Sodium 134 L (136-145) mEq/L Potassium 3.9 (3.5-5.1) mEq/L Chloride 104 (98-107) mEq/L Carbon Dioxide 24 (23-29) mEq/L BUN 17 (8-23) mg/dL Creatinine 1.54 H (0.60-1.20) mg/dL Glucose 72 (70-105) mg/dL Calcium 8.0 L (8.6-10.3) mg/dL Adrenal panel 05/26/18 Range/Units 01:00 Sodium 134 L (136-145) mEq/L Potassium 3.9 (3.5-5.1) mEq/L Chloride 104 (98-107) mEq/L Carbon Dioxide 24 (23-29) mEq/L BUN 17 (8-23) mg/dL Creatinine 1.54 H (0.60-1.20) mg/dL Glucose 72 (70-105) mg/dL Calcium 8.0 L (8.6-10.3) mg/dL Consult Discharge Plan - Plan Referrals: Kalyani Chase MD [Primary Care Provider] -
[2018-05-26] MEDS: Letrozole 2.5 MG TABLET PO SCH (09:55)
[2018-05-26 13:17] LABS: Hematocrit 28.5 % (35.3-44.9); Hemoglobin 8.9 g/dL (11.5-15.4)
[2018-05-26 20:52] LABS: Hematocrit 28.7 % (35.3-44.9); Hemoglobin 8.9 g/dL (11.5-15.4)
[2018-05-27] MEDS: *HR* HYDROcodone/Acet 5/325 mg TABLET PO PRN ×2 (04:08→12:06)
[2018-05-27] MEDS ORDERED: Acetaminophen IV 500 MG/50 ML INFUS..BTL IVPB ONE (07:56)
[2018-05-27] MEDS ORDERED: *HR* OxyCODONE/APAP 5/325 TABLET PO PRN (07:57)
[2018-05-27] MEDS: hydrALAZINE 25 MG TABLET PO SCH ×3 (08:15→21:39)
[2018-05-27] MEDS: Isosorbide MONOnitrate (24 HR) 60 MG TAB.ER.24H PO SCH (08:16)
[2018-05-27] MEDS: Diltiazem CD (24hr) 120 MG CAPSULE PO SCH (08:16)
[2018-05-27] MEDS: Furosemide 40 MG TABLET PO SCH ×3 (08:16→17:30)
[2018-05-27] MEDS: Letrozole 2.5 MG TABLET PO SCH (08:16)
[2018-05-27] MEDS: Cholecalciferol (D-3) 1,000 UNIT TABLET PO SCH (08:16)
[2018-05-27] MEDS: *HR* OxyCODONE/APAP 10/325 TABLET PO PRN (08:17)
[2018-05-27] MEDS: Insulin NPH/REG 70/30 100 UNIT/ML (x5UNIT) SQ SCH ×2 (08:17→17:32)
[2018-05-27] MEDS: Pantoprazole 40 MG VIAL IVP SCH (08:17)
[2018-05-27] MEDS: Docusate Oral Soln 100 MG/10 ML UDC PO SCH (08:23)
--- NOTE | 2018-05-27 10:11 | General Surgery Progress Note ---
Date of Encounter: 05/27/18 Time of Encounter: 08:00 - Assessment and Plan (1) Colovaginal fistula Current Visit: Yes Status: Acute Patient is s/p sigmoid resection with ostomy and lysis of adhesions on 05/23 for colovaginal fistula WBC 9.4 > 9 Hgb 8.9 (has needed 2 transfusions of PRBCs since admission) INR 1.3 BRANNON drain 95 > 25 ml of sanguineous liquid Zofran and phenergan for nausea Protonix for GI prophylaxis Oxycodone and norco for pain On full liquid diet Stopped IVF Consulted wound care for ostomy and BRANNON drain Increase activity, up out of bed, consulted PT/OT Patient had intra-operative urology consult with stent placement, will follow-up with Dr. Hartman as outpatient Please leave in guerrero until she has follow-up appointment with Dr. Hartman (2) CKD (chronic kidney disease) Current Visit: Yes Status: Chronic Patient's Cr 1.54, down from 2.14 on admission Continue to monitor Qualifiers: Chronic kidney disease stage: stage 4 (severe) Qualified Code(s): N18.4 - Chronic kidney disease, stage 4 (severe) (3) Anemia Current Visit: No Status: Acute Patient has chronic anemia Has needed 2 transfusions of PRBCs during this admission Will continue to monitor Qualifiers: Anemia type: unspecified type Qualified Code(s): D64.9 - Anemia, unspecified Subjective Patient reports: no new complaints, feels better, pain is less, tolerating liquids well Narrative: Patient doing well this morning. States her pain is improved. She is tolerating her full liquids without nausea, vomiting. She denies CP, SOB, fevers/chills. Objective Vital Signs - Last 8 Hours Temp Pulse Resp BP Pulse Ox 05/27/18 07:39 98.8 F 80 16 156/73 92 05/27/18 03:32 98 F 73 16 139/67 95 Intake and Output 05/26/18 05/27/18 05/27/18 23:59 07:59 15:59 Intake Total 1000 / 1000 337 / 337 120 / 120 Output Total 920 / 920 3425 / 3425 Balance 80 / 80 -3088 / -3088 120 / 120 Intake: IV Fluids 1000 / 1000 0.9 % Sodium Chloride 1,000 ML 1000 / 1000 @ 75 mls/hr IVC .[id number] [facility] Rx #:[id number] Oral 0 / 0 337 / 337 120 / 120 Output: Urine 1250 / 1250 Catheter 900 / 900 2150 / 2150 Wound Drainage BRANNON Drain Lower right abdomen Other: Weight 79.1 kg Blood Glucose* 184 79 Patient Weight 05/27/18 23:59 Weight 79.1 kg - General physical appearance well developed - Respiratory normal expansion, normal respiratory effort - Cardiovascular Cardiovascular exam: Present: RRR - Abdomen Abdomen: Present: bowel sounds present, soft, tender (appropriately over BRANNON site) Additional Comments: BRANNON drain with sanguineous liquid Ostomy mucosa is pink andmildly edematous with bloody liquid and small amount of flatus in bag - Incision Incision: Present: clean and dry (the gauze appeared bloody, but incision was not actively draining on my exam), intact - Integumentary no rash - Psychiatric oriented to time, oriented to person - Labs 05/26/18 20:33 05/26/18 01:00 Consult Discharge Plan - Plan Referrals: Kalyani Chase MD [Primary Care Provider] - (Called and left message for a ppt. with patient birthdate and name....) John Hartman MD [Partnered Physician] -
[2018-05-27] MEDS: *HR* OxyCODONE/APAP 5/325 TABLET PO PRN ×2 (15:03→21:45)
[2018-05-27] MEDS: ALPRAZolam 1 MG TABLET PO PRN (22:55)
[2018-05-28] MEDS: Cholecalciferol (D-3) 1,000 UNIT TABLET PO SCH (08:40)
[2018-05-28] MEDS: Diltiazem CD (24hr) 120 MG CAPSULE PO SCH (08:40)
[2018-05-28] MEDS: Docusate Oral Soln 100 MG/10 ML UDC PO SCH (08:40)
[2018-05-28] MEDS: Insulin NPH/REG 70/30 100 UNIT/ML (x5UNIT) SQ SCH ×2 (08:40→17:17)
[2018-05-28] MEDS: Isosorbide MONOnitrate (24 HR) 60 MG TAB.ER.24H PO SCH (08:40)
[2018-05-28] MEDS: *HR* OxyCODONE/APAP 5/325 TABLET PO PRN ×3 (08:40→21:59)
[2018-05-28] MEDS: Letrozole 2.5 MG TABLET PO SCH (08:41)
[2018-05-28] MEDS: Furosemide 40 MG TABLET PO SCH ×3 (08:41→17:17)
[2018-05-28] MEDS: hydrALAZINE 25 MG TABLET PO SCH ×3 (08:41→21:52)
[2018-05-28] MEDS: Pantoprazole 40 MG VIAL IVP SCH (08:41)
[2018-05-28] MEDS: *HR* Heparin 5,000 UNIT/ML VIAL SQ SCH ×2 (12:10→17:18)
[2018-05-28] MEDS: *HR* HYDROcodone/Acet 5/325 mg TABLET PO PRN (12:10)
[2018-05-28 13:48] LABS: Bilirubin,Urine Negative (Negative); Blood,Urine Large (Negative); Clarity,Urine Cloudy (Clear); Color,Urine Yellow (Yellow); Glucose,Urine (UA) Normal (Normal); Ketones,Urine Negative (Negative); Leukocyte Esterase,Urine Large (Negative); Nitrite,Urine Negative (Negative); PH,Urine 6.5 pH Units (5.0-8.0); Protein,Urine 100 mg/dL (Neg-Trace); Specific Gravity,Urine 1.006 (1.010-1.025); Urobilinogen,Urine Normal (Normal)
[2018-05-28 13:51] LABS: Bacteria,Urine None Seen per hpf (None-Few); Hyaline Casts,Urine None Seen per lpf (None-Few); RBC,Urine TNTC per hpf (0-3); Squamous Epithelial Cell,Urine Many per lpf (None-Few); WBC,Urine 50-100 per hpf (0-3)
--- NOTE | 2018-05-28 15:50 | General Surgery Progress Note ---
Date of Encounter: 05/28/18 Time of Encounter: 10:15 - Assessment and Plan (1) Colovaginal fistula Current Visit: Yes Status: Acute Patient is s/p sigmoid resection with ostomy and lysis of adhesions on 05/23 for colovaginal fistula WBC 9.4 > 9 Hgb 8.9 (has needed 2 transfusions of PRBCs since admission) INR 1.3 BRANNON drain 45 > 10 ml of sanguineous liquid Zofran and phenergan for nausea Protonix for GI prophylaxis Oxycodone and norco for pain Start soft diet Stopped IVF Consulted wound care for ostomy and BRANNON drain Increase activity, up out of bed, consulted PT/OT Patient had intra-operative urology consult with stent placement, will follow-up with Dr. Hartman as outpatient Please leave in [place] until she has follow-up appointment with Dr. Hartman family services worker consulted for discharge planning, will likely go to rehab tomorrow (2) CKD (chronic kidney disease) Current Visit: Yes Status: Chronic Patient's Cr 1.54, down from 2.14 on admission Continue to monitor Qualifiers: Chronic kidney disease stage: stage 4 (severe) Qualified Code(s): N18.4 - Chronic kidney disease, stage 4 (severe) (3) Anemia Current Visit: No Status: Acute Patient has chronic anemia Has needed 2 transfusions of PRBCs during this admission Will continue to monitor Qualifiers: Anemia type: unspecified type Qualified Code(s): D64.9 - Anemia, unspecified Subjective Patient reports: no new complaints, still having pain, pain is less Narrative: Patient doing well this morning. She is tolerating her diet well. She still admits to some abdominal pain. She denies nausea, vomiting, fevers/chills, SOB, CP Objective Vital Signs - Last 8 Hours Temp Pulse Resp BP Pulse Ox 05/28/18 12:45 98.4 F 79 20 110/60 96 05/28/18 07:49 99.7 F H 98 20 134/56 93 Intake and Output 05/27/18 05/28/18 05/28/18 23:59 07:59 15:59 Intake Total 640 / 640 600 / 600 Output Total 1999 / 1999 1160 / 1160 950 / 950 Balance -1360 / -1360 -1160 / -1160 -350 / -350 Intake: Oral 240 / 240 600 / 600 Free Water 400 / 400 Output: Urine 550 / 550 650 / 650 Catheter 2000 / 2000 600 / 600 300 / 300 Wound Drainage BRANNON Drain Lower right abdomen Other: Percent of Meal Consumed 0% Weight 79.1 kg Blood Glucose* 230 93 Patient Weight 05/28/18 23:59 Weight 79.1 kg - General physical appearance well developed - Respiratory normal expansion, normal respiratory effort - Cardiovascular Cardiovascular exam: Present: RRR - Abdomen Abdomen: Present: bowel sounds present, soft, tender (around BRANNON drain site) - Incision Incision: Present: clean and dry, intact - Integumentary no rash - Psychiatric oriented to time, oriented to person, oriented to place - Labs 05/26/18 20:33 05/26/18 01:00 Consult Discharge Plan - Plan Referrals: Kalyani Chase MD [Primary Care Provider] - (Called and left message for appt. with patient birthdate and name....) John Hartman MD [Partnered Physician] -
[2018-05-28] MEDS: ALPRAZolam 1 MG TABLET PO PRN (21:59)
[2018-05-29] MEDS: *HR* Heparin 5,000 UNIT/ML VIAL SQ SCH (06:33)
[2018-05-29] MEDS: Letrozole 2.5 MG TABLET PO SCH (08:33)
[2018-05-29] MEDS: Docusate Oral Soln 100 MG/10 ML UDC PO SCH (08:33)
[2018-05-29] MEDS: Furosemide 40 MG TABLET PO SCH ×2 (08:34→12:50)
[2018-05-29] MEDS: Diltiazem CD (24hr) 120 MG CAPSULE PO SCH (08:34)
[2018-05-29] MEDS: Insulin NPH/REG 70/30 100 UNIT/ML (x5UNIT) SQ SCH (08:34)
[2018-05-29] MEDS: Isosorbide MONOnitrate (24 HR) 60 MG TAB.ER.24H PO SCH (08:35)
[2018-05-29] MEDS: hydrALAZINE 25 MG TABLET PO SCH (08:35)
[2018-05-29] MEDS: Cholecalciferol (D-3) 1,000 UNIT TABLET PO SCH (08:35)
[2018-05-29] MEDS: Pantoprazole 40 MG VIAL IVP SCH (08:36)
[2018-05-29] MEDS: *HR* HYDROcodone/Acet 5/325 mg TABLET PO PRN (08:36)
--- NOTE | 2018-05-29 08:47 | Discharge Summary ---
Orders not resulted at time of discharge: Pending orders 05/23/18 13:27 US anesthesia pain block [US] Routine Date of Encounter: 05/29/18 Time of Encounter: 10:21 - Discharge Diagnosis (1) Fistula Priority: Primary Status: Acute (2) ASHD (arteriosclerotic heart disease) Priority: Secondary Status: Acute (3) Anemia Priority: Secondary Status: Acute Qualifiers: Anemia type: unspecified type Qualified Code(s): D64.9 - Anemia, unspecified (4) CKD (chronic kidney disease) Priority: Secondary Status: Chronic Qualifiers: Chronic kidney disease stage: stage 4 (severe) Qualified Code(s): N18.4 - Chronic kidney disease, stage 4 (severe) General Surgery Exam Initial Vital Signs Temp Pulse Resp BP Pulse Ox 98.3 F 72 19 149/71 98 05/22/18 10:05 05/22/18 10:05 05/22/18 10:05 05/22/18 10:05 05/22/18 10:05 - General physical appearance well nourished, no distress, obese - Neck no masses, trachea midline - Respiratory normal expansion, normal respiratory effort, clear to auscultation - Cardiovascular Cardiovascular exam: Present: RRR - Abdomen Abdomen general surgery: Present: bowel sounds present, soft, tender (expected postopertive), wound (BRANNON with small amount of SS drainage; stoma is pink and moist, without brown output) Hernia: Present: none - Incision Incision: Present: clean and dry, intact - Neurologic Present: normal coordination, normal sensation - Musculoskeletal Present: normal posture - Psychiatric Psychiatric general surgery: Present: A&Ox3, appropriate, oriented to person, oriented to place, oriented to time - Hospital Course Hospital course: Ms. Patel is a 82 year old female who presented on 05/22/2018 for an elective robotic sigmoid resection with apartments, lysis of adhesions for 1 hour, and intraoperative consult/procedure cystoscopy and bilateral ureteral catheterization by Dr. Hartman. Her hospital course was complicated by acute blood loss on chronic anemia and she was transfused 2 units packed red blood cells. Her vital signs are stable, tolerating a diet without nausea or vomiting, afebrile, active with PT/OT assistance, urinary catheter remains in place, and she is having output per her ostomy. We will begin discharge planning to rehab with a follow-up in the office in approximately one week for a drain check and [address] Hughes. - Time Spent with Patient Total time spent providing and/or coordinating discharge services: Less than 30 minutes (d/c planning to rehab, ostomy supplies, coordination of d.c.) - Discharge Medications Prescriptions: OxyCODONE/APAP 5/325 [Percocet 5/325 MG] 1 each PO Q6HR PRN 5 Days #20 tablet PRN Reason: Severe Pain ALPRAZolam [Xanax 1 MG Tablet] 1 mg PO BID PRN 5 Days #10 tablet PRN Reason: Anxiety Home Medications: Albuterol Sulfate [Ventolin Hfa] 2 puff IH Q4HR PRN 01/20/18 [History] Aspirin [Lo-Dose Aspirin EC] 81 mg PO DAILY 01/20/18 [History] Atorvastatin [Lipitor] 40 mg PO HS 01/20/18 [History] Carvedilol [Coreg] 6.25 mg PO BID 01/20/18 [History] Cholecalciferol (D-3) [Vitamin D] 2,000 unit PO BID 01/20/18 [History] Insulin Aspart Prot/Insuln Asp [Novolog Mix 70-30 Flexpen Syrn] 12 unit SQ DAILY 01/20/18 [History] Isosorbide MONOnitrate (24 HR) [Imdur] 60 mg PO DAILY 01/20/18 [History] Levothyroxine [Synthroid] 75 mcg PO 0630 01/20/18 [History] Losartan Potassium [Cozaar] 50 mg PO BID 01/20/18 [History] Potassium Chloride [K-Tab ER] 20 meq PO TID 01/20/18 [History] hydrALAZINE [HydrALAZINE] 25 mg PO Q8H 01/20/18 [History] Furosemide [Lasix] 40 mg PO TID 02/03/18 [History] Nitroglycerin [Nitrostat] 0.4 mg SL PER PKG DI PRN 02/03/18 [History] Letrozole [Femara] 2.5 mg PO DAILY #30 tablet 02/07/18 [Rx] Insulin Aspart Prot/Insuln Asp [Novolog Mix 70-30 Flexpen Syrn] 16 unit SQ QPM 03/20/18 [History] Diltiazem CD (24hr) [Cardizem CD] 120 mg PO DAILY #1 cap.er.24h 03/21/18 [Rx] Lactulose 15 mg PO TID 05/09/18 [History] Lidocaine Patch [Lidoderm 5% patch] 1 patch TD Q12H PRN 05/09/18 [History] Oxycodone HCl/Acetaminophen [Percocet 10-325 mg Tablet] 1 tab PO Q6HR PRN 05/09/18 [History] Cyclobenzaprine HCl 5 mg PO HS PRN 05/22/18 [History] ALPRAZolam [Xanax 1 MG Tablet] 1 mg PO BID PRN 5 Days #10 tablet 05/29/18 [Rx] OxyCODONE/APAP 5/325 [Percocet 5/325 MG] 1 each PO Q6HR PRN 5 Days #20 tablet 05/29/18 [Rx] Allergies/Adverse Reactions: Allergy/AdvReac Type Severity Reaction Status Date / Time adhesive tape Allergy Blister Verified 05/09/18 07:24 hydrocodone [From [place]] Allergy See Verified 05/09/18 07:24 Comments iron Allergy Hives Verified 05/09/18 07:24 latex Allergy Blister Verified 05/09/18 07:24 Penicillins Allergy NAUSEA,SWEL Verified 05/09/18 07:24 LING zinc Allergy Blister Verified 05/09/18 07:24 Sulfa (Sulfonamide AdvReac Nausea Verified 05/09/18 07:24 Antibiotics) Date of admission: 05/22/18 13:51 Primary care physician: Kalyani Chase, Consults: 05/22/18 10:47 Consult to Pastoral Services [CONS] Stat Comment: Mormon- wants to see before surgery tomorrow 05/26/18 19:22 PT [Consult to Physical Therapy] [CONS] Routine Comment: Evaluate, develop and implement POC Reason for Consult: discharge needs Does patient have active BEDREST order?: No Is patient medically & hemodynamically stable?: Yes 05/26/18 19:23 OT [Consult to Occupational Therapy] [CONS] Routine Comment: Evaluate, develop and implement POC Reason for Consult: discharge Does patient have active BEDREST order?: No Is patient medically & hemodynamically stable?: Yes 05/27/18 07:47 Consult to Technical Sales Director [CONS] Routine Reason for SW Consult: d/c planning. New ostomy, will likley need snf/rehab pending PT/OT reccs. D/c planning 24-48 hours pending eval and ostomy function Consult to Wound Care [CONS] Routine Reason for Consult: New ostomy teaching D/c planning 24-48 hours pending PT/Ot, ostomy education, and ostomy function Time Notified: 07:49 Call Completed: Yes 05/27/18 11:09 Consult to Invasive Line Access Team [CONS] Routine Reason for Consult: powerglide Line Type: EPIV Consult to PICC team [Consult to Invasive Line Access Team] [CONS] Routine Reason for Consult: powerglide Line Type: EPIV Discharging clinician: Rowan Mckee Anticipated date of discharge: 05/29/18 Labs on day of discharge: Labs from last 24 hours 05/28/18 05/28/18 05/28/18 16:36 13:35 12:06 POC Glucose 191 H 134 H Urine Color Yellow Urine Clarity Cloudy A Urine pH 6.5 Ur Specific [place] 1.006 L Urine Protein 100 H Urine Glucose (UA) Normal Urine Ketones Negative Urine Blood Large H Urine Nitrite Negative Urine Bilirubin Negative Urine Urobilinogen Normal Ur Leukocyte Esterase Large H Urine Microscopic RBC TNTC H Urine Microscopic WBC 50-100 H Ur Squamous Epith Cells Many H Urine Bacteria None Seen Hyaline Casts None Seen Ur Culture Indicated? NO. A 05/28/18 05/27/18 05/27/18 08:02 17:17 07:49 POC Glucose 93 237 H 79 Urine Color Urine Clarity Urine pH Ur Specific [place] Urine Protein Urine Glucose (UA) Urine Ketones Urine Blood Urine Nitrite Urine Bilirubin Urine Urobilinogen Ur Leukocyte Esterase Urine Microscopic RBC Urine Microscopic WBC Ur Squamous Epith Cells Urine Bacteria Hyaline Casts Ur Culture Indicated? - Impressions ITS Impressions Chest X-Ray 05/23/18 14:13 IMPRESSION: 1. Left subclavian central venous catheter with the tip at the level of the SVC. 2. No convincing acute cardiopulmonary abnormality. 3. No evidence of a pneumothorax. D/ / Niall Katz MD / Niall Katz MD Interpreting Provider: Niall Katz MD - Patient Status Disposition: Transfer Inpatient Rehab Fac Condition: Good Functional capacity at discharge: uses cane/walker Overall status at discharge: patient is not back to baseline - Discharge Instructions Instructions: Colectomy (DC), Colostomy Creation (DC), Colostomy Care (DC) Follow Up With: Kalyani Chase MD [Primary Care Provider] - (Called and left message for appt. with patient birthdate and name....) Rowan Mckee CNP [Advanced Practice Nurse] - 06/03/18 3:00 pm Bill Hughes DO [Partnered Physician] - 06/10/18 9:00 am John Hartman MD [Partnered Physician] - (1-2 weeks after d/c) Additional Instructions: General Surgical Discharge Instructions 1. No pushing, pulling, or lifting greater than 15 lbs for 2-4 weeks (depending upon procedure). 2. You may shower beginning today, but no tub baths, soaking, or swimming for 2 weeks. 3. You may resume driving when you are off narcotics and are safe to react in a car. 4. Take the as needed Percocet (you may take one additional acetaminophen with the percocet if needed). Take narcotics as directed. Do not take more narcotics then directed and do not share your narcotics with any other person. Do not drink alcohol while on narcotics. 5. Take stool softeners (Colace) or a water based laxative (Miralax) while taking narcotics. You may hold for loose stools. 6. Report any fevers greater than 100.5F, increase abdominal discomfort, drainage that looks like pus, increased redness or pain at the surgical site, or any vomiting. 7. Report any pain in the calves, shortness of breath, or rapid heartbeat. 8. Follow-up in the office as directed. 9. If you were prescribed antibiotics, do not stop them without talking to your provider. Daily BRANNON Drain Care: 1. Remove dressings. Shower with antibacterial soap. 2. Do not let the BRANNON drain dangle from your body. Use the safety pin to secure to your clothing. Secure the BRANNON to a lanyard or other type of long necklace when you shower. 3. Replace drain gauze and taped to secure. 4. Record the output from your BRANNON bulb (at least once daily) on the form provided and bring this with you to your follow-up appointment. 5. Keep the BRANNON drain to suction (squeeze the bulb and replace the cap while squeezing). 6. Strip the lines twice daily (hold onto the line as close to the body as you can, then with the other hand push the contents of the line into the BRANNON bulb). - Diet and Activity Activity: as per physical therapy, increase activity as tolerated Diet: advance to your usual diet
--- NOTE | 2018-05-29 10:29 | Physician Discharge Referral ---
ExtendedCare Referral Info Transfer To: [facility] Provider in Charge: Dr. Bill Hugehs Provider in Charge after Transfer: Other (REhab directot/yardage estimator) Institutional Level of Care: Skilled - Diagnosis (1) Fistula Priority: Primary Status: Acute (2) ASHD (arteriosclerotic heart disease) Priority: Secondary Status: Acute (3) Anemia Priority: Secondary Status: Acute (4) CKD (chronic kidney disease) Priority: Secondary Status: Chronic - Transfer Medications Prescriptions: OxyCODONE/APAP 5/325 [Percocet 5/325 MG] 1 each PO Q6HR PRN 5 Days #20 tablet PRN Reason: Severe Pain ALPRAZolam [Xanax 1 MG Tablet] 1 mg PO BID PRN 5 Days #10 tablet PRN Reason: Anxiety Home Medications: Albuterol Sulfate [Ventolin Hfa] 2 puff IH Q4HR PRN 01/20/18 [History] Aspirin [Lo-Dose Aspirin EC] 81 mg PO DAILY 01/20/18 [History] Atorvastatin [Lipitor] 40 mg PO HS 01/20/18 [History] Carvedilol [Coreg] 6.25 mg PO BID 01/20/18 [History] Cholecalciferol (D-3) [Vitamin D] 2,000 unit PO BID 01/20/18 [History] Insulin Aspart Prot/Insuln Asp [Novolog Mix 70-30 Flexpen Syrn] 12 unit SQ DAILY 01/20/18 [History] Isosorbide MONOnitrate (24 HR) [Imdur] 60 mg PO DAILY 01/20/18 [History] Levothyroxine [Synthroid] 75 mcg PO 0630 01/20/18 [History] Losartan Potassium [Cozaar] 50 mg PO BID 01/20/18 [History] Potassium Chloride [K-Tab ER] 20 meq PO TID 01/20/18 [History] hydrALAZINE [HydrALAZINE] 25 mg PO Q8H 01/20/18 [History] Furosemide [Lasix] 40 mg PO TID 02/03/18 [History] Nitroglycerin [Nitrostat] 0.4 mg SL PER PKG DI PRN 02/03/18 [History] Letrozole [Femara] 2.5 mg PO DAILY #30 tablet 02/07/18 [Rx] Insulin Aspart Prot/Insuln Asp [Novolog Mix 70-30 Flexpen Syrn] 16 unit SQ QPM 03/20/18 [History] Diltiazem CD (24hr) [Cardizem CD] 120 mg PO DAILY #1 cap.er.24h 03/21/18 [Rx] Lactulose 15 mg PO TID 05/09/18 [History] Lidocaine Patch [Lidoderm 5% patch] 1 patch TD Q12H PRN 05/09/18 [History] Oxycodone HCl/Acetaminophen [Percocet 10-325 mg Tablet] 1 tab PO Q6HR PRN 05/09/18 [History] Cyclobenzaprine HCl 5 mg PO HS PRN 05/22/18 [History] ALPRAZolam [Xanax 1 MG Tablet] 1 mg PO BID PRN 5 Days #10 tablet 05/29/18 [Rx] OxyCODONE/APAP 5/325 [Percocet 5/325 MG] 1 each PO Q6HR PRN 5 Days #20 tablet 05/29/18 [Rx] Allergies/Adverse Reactions: Allergy/AdvReac Type Severity Reaction Status Date / Time adhesive tape Allergy Blister Verified 05/09/18 07:24 hydrocodone [From [place]] Allergy See Verified 05/09/18 07:24 Comments iron Allergy Hives Verified 05/09/18 07:24 latex Allergy Blister Verified 05/09/18 07:24 Penicillins Allergy NAUSEA,SWEL Verified 05/09/18 07:24 LING zinc Allergy Blister Verified 05/09/18 07:24 Sulfa (Sulfonamide AdvReac Nausea Verified 05/09/18 07:24 Antibiotics) - Respiratory Orders Smoking Cessation: Smoking cessation has been advised. For more information, call the [place] Tobacco Quit Line at 9-908-UXZB-NOW. - Ancillary Orders May use pressure relief devices daily prn - Advance Directives Living Will: No Power of Machine Rug Cleaner for Health Care: No Code Status: Full Code - Mobility Orders Ambulate - Rehabiliation Orders Rehab Potential: Fair Rehab Orders: ROM Exercises, Evaluation for Physical Therapy, Evaluation for Occupational Therapy, Evaluation for Speech Therapy - Treatments Skin tear care topically daily PRN per policy List/Other: General Surgical Discharge Instructions 1. No pushing, pulling, or lifting greater than 15 lbs for 2-4 weeks (depending upon procedure). 2. You may shower beginning today, but no tub baths, soaking, or swimming for 2 weeks. 3. You may resume driving when you are off narcotics and are safe to react in a car. 4. Take the as needed Percocet (you may take one additional acetaminophen with the percocet if needed). Take narcotics as directed. Do not take more narcotics then directed and do not share your narcotics with any other person. Do not drink alcohol while on narcotics. 5. Take stool softeners (Colace) or a water based laxative (Miralax) while taking narcotics. You may hold for loose stools. 6. Report any fevers greater than 100.5F, increase abdominal discomfort, drainage that looks like pus, increased redness or pain at the surgical site, or any vomiting. 7. Report any pain in the calves, shortness of breath, or rapid heartbeat. 8. Follow-up in the office as directed. 9. If you were prescribed antibiotics, do not stop them without talking to your provider. Daily BRANNON Drain Care: 1. Remove dressings. Shower with antibacterial soap. 2. Do not let the BRANNON drain dangle from your body. Use the safety pin to secure to your clothing. Secure the BRANNON to a lanyard or other type of long necklace when you shower. 3. Replace drain gauze and taped to secure. 4. Record the output from your BRANNON bulb (at least once daily) on the form provided and bring this with you to your follow-up appointment. 5. Keep the BRANNON drain to suction (squeeze the bulb and replace the cap while squeezing). 6. Strip the lines twice daily (hold onto the line as close to the body as you can, then with the other hand push the contents of the line into the BRANNON bulb). - Diet Orders Mechanical Soft House Supplement per Dietary: Ensure or Boost Twice daily CERTIFICATION: I certify that the transfer of the above named patient to an Extended Care Facility is necessary for the continuing treatment of the diagnosis listed. The above information is true and accurate reflection of patient's current condition. Confidential - Redisclosure prohibited without a patient's written consent.
[2018-05-29 12:16] VITALS: BP 108/54
[2018-05-29] MEDS: *HR* OxyCODONE/APAP 5/325 TABLET PO PRN (12:50)
[2018-05-29] MEDS: ALPRAZolam 1 MG TABLET PO PRN (12:50)
== END 2018-05-29 13:23 | DRG 330 ==
LOC: 2ANU
PROVIDERS: ADMIT Surgery; ATTEND Surgery

== ENCOUNTER 2020-03-16 20:46 | Inpatient (IN) ==
[2020-03-16] MEDS ORDERED: Ondansetron 4 MG/2 ML VIAL IVP PRN (22:29)
[2020-03-16] MEDS ORDERED: Naloxone 0.4 MG/ML INJ IVP PRN (22:29)
[2020-03-16] MEDS ORDERED: *HR* Dextrose 50 % in Water (Vial) 50 ML VIAL IVP PRN (22:38)
[2020-03-16] MEDS ORDERED: Dextrose Gel 15 GM/37.5 ML TUBE PO PRN ×2 (22:38)
[2020-03-16] MEDS ORDERED: D5% in Water 1,000 ML IVC PRN (22:38)
[2020-03-17] MEDS: Insulin LISPRO 300 UNITS/3 ML VIAL SQ SCH ×5 (00:48→23:48)
[2020-03-17 01:20] LABS: Basophils % 0.6 %; Eosinophils # 0.3 K/mcL (0.0-0.6); Eosinophils % 3.5 %; Hemoglobin 10.5 g/dL (11.5-15.4); Immature Granulocytes % 0.3 % (0-4); Lymphocytes # 1.1 K/mcL (0.6-4.6); Lymphocytes % 15.3 %; Mean Corpuscular HGB Conc 30.9 g/dL (31.6-35.5); Mean Corpuscular Volume 90.7 fL (83.0-100.0); Mean Platelet Volume 10.4 fL (9.4-12.4); Monocytes # 0.5 K/mcL (0.0-1.3); Monocytes % 6.5 %; Neutrophils # 5.2 K/mcL (1.6-8.9); Platelet Count 340 K/mcL (140-400); Prothrombin Time 11.2 Seconds (9.4-12.1); Red Blood Count 3.75 M/mcL (3.82-4.97); Red Cell Distribution Width 14.6 % (11.5-14.5); Segmented Neutrophils % 73.8 %; White Blood Count 7.1 K/mcL (4.3-11.1)
[2020-03-17 01:45] LABS: Albumin 4.4 g/dL (3.5-5.7); Albumin/Globulin Ratio 1.3 (1.1-2.2); Bilirubin,Total 0.4 mg/dL (0.3-1.0); Chol/HDL Ratio 4.5 (0-4.9); Globulin 3.3 g/dL (2.4-3.5); Magnesium 2.5 mg/dL (1.6-2.6); Phosphorous 4.3 mg/dL (2.7-4.5); Potassium 4.2 mEq/L (3.5-5.1); Total Protein 7.7 g/dL (6.4-8.9)
[2020-03-17] MEDS ORDERED: carvediloL 25 MG TABLET PO SCH (08:00)
[2020-03-17] MEDS: Letrozole 2.5 MG TABLET PO SCH (08:34)
[2020-03-17] MEDS: Aspirin Enteric Coated 81 MG Tablet PO SCH (08:35)
[2020-03-17] MEDS: Ascorbic Acid 500 MG TABLET PO SCH ×2 (08:36→21:15)
[2020-03-17] MEDS: hydrALAZINE 25 MG TABLET PO SCH ×3 (08:36→21:16)
[2020-03-17] MEDS: carvediloL 6.25 MG TABLET PO SCH ×2 (08:36→16:02)
[2020-03-17] MEDS: Furosemide 40 MG TABLET PO SCH ×2 (08:53→16:01)
[2020-03-17] MEDS ORDERED: Regadenoson 0.4 MG/5 ML SYRINGE IVP ONE (11:56)
[2020-03-17 12:20] LABS: Troponin I 0.05 ng/mL (< 0.04)
[2020-03-17] MEDS ORDERED: Perflutren Lipid Microsphere 1.3 ML in 0.9 % Sodium Chloride 8.7 ML IVP PRN (12:56)
[2020-03-17] MEDS: *HR* Heparin 5,000 UNIT/ML VIAL SQ SCH ×2 (16:02→21:15)
[2020-03-17] MEDS: *HR* OxyCODONE/APAP 10/325 TABLET PO PRN (16:07)
[2020-03-17] MEDS ORDERED: Melatonin 3 MG TABLET PO SCH (21:00)
[2020-03-17] MEDS ORDERED: Insulin DETEMIR 100 UNIT/ML X5UNITS SQ SCH (21:00)
[2020-03-18 05:16] LABS: Basophils # 0.1 K/mcL (0.0-0.2); Basophils % 0.9 %; Eosinophils # 0.2 K/mcL (0.0-0.6); Eosinophils % 3.9 %; Hematocrit 31.2 % (35.3-44.9); Hemoglobin 9.9 g/dL (11.5-15.4); Immature Granulocytes % 0.2 % (0-4); Lymphocytes # 1.1 K/mcL (0.6-4.6); Lymphocytes % 20.1 %; Mean Corpuscular HGB Conc 31.7 g/dL (31.6-35.5); Mean Corpuscular Hemoglobin 28.9 pg (28.0-33.3); Mean Platelet Volume 9.9 fL (9.4-12.4); Monocytes # 0.5 K/mcL (0.0-1.3); Monocytes % 9.4 %; Neutrophils # 3.6 K/mcL (1.6-8.9); Platelet Count 278 K/mcL (140-400); Red Blood Count 3.43 M/mcL (3.82-4.97); Red Cell Distribution Width 14.6 % (11.5-14.5); Segmented Neutrophils % 65.5 %; White Blood Count 5.4 K/mcL (4.3-11.1)
[2020-03-18 05:37] LABS: Calcium 9.5 mg/dL (8.6-10.3); Magnesium 2.2 mg/dL (1.6-2.6); Potassium 3.4 mEq/L (3.5-5.1)
[2020-03-18] MEDS: *HR* Heparin 5,000 UNIT/ML VIAL SQ SCH ×2 (05:43→14:56)
[2020-03-18] MEDS: Insulin LISPRO 300 UNITS/3 ML VIAL SQ SCH ×2 (05:49→12:19)
[2020-03-18 08:06] LABS: Estimated Average Glucose 194 mg/dl
[2020-03-18] MEDS: hydrALAZINE 25 MG TABLET PO SCH ×2 (08:46→14:58)
[2020-03-18] MEDS: Aspirin Enteric Coated 81 MG Tablet PO SCH (08:46)
[2020-03-18] MEDS: Letrozole 2.5 MG TABLET PO SCH (08:46)
[2020-03-18] MEDS: carvediloL 6.25 MG TABLET PO SCH (08:46)
[2020-03-18] MEDS: Furosemide 40 MG TABLET PO SCH ×2 (08:46→12:19)
[2020-03-18] MEDS: Ascorbic Acid 500 MG TABLET PO SCH (08:46)
[2020-03-18] MEDS: *HR* OxyCODONE/APAP 10/325 TABLET PO PRN (12:24)
[2020-03-18 15:32] VITALS: BP 124/55
== END 2020-03-18 18:25 | disposition home or self-care (01) | DRG 445 ==
LOC: CDU → SUATTDRO 22:06 → 2ANU 22:50
PROVIDERS: ADMIT Family Medicine; ATTEND Internal Medicine

== ENCOUNTER 2020-06-02 12:28 | Inpatient (IN) ==
[2020-06-02] MEDS ORDERED: 0.9 % Sodium Chloride 1,000 ML IVC SCH (13:15)
[2020-06-02] MEDS ORDERED: *HR* FentaNYL (PF) 100 MCG/2 ML VIAL ONE (14:06)
[2020-06-02] MEDS ORDERED: *HR* Midazolam HCl 2 MG/2 ML VIAL ONE (14:07)
[2020-06-02] MEDS ORDERED: 0.9 % Sodium Chloride 500 ML ONE ×2 (14:20→14:56)
[2020-06-02] MEDS ORDERED: Nitroglycerin 0.4 MG TAB.SUBL SL PRN (16:07)
[2020-06-02] MEDS ORDERED: NOVOLOG 70/30 FLEXPEN SQ SCH (17:00)
[2020-06-02] MEDS ORDERED: Insulin NPH/REG 70/30 100 UNIT/ML (x5UNIT) SQ SCH (17:45)
[2020-06-02] MEDS: Insulin NPH/REG 70/30 100 UNIT/ML (x5UNIT) SQ SCH (18:41)
[2020-06-02] MEDS: Ascorbic Acid 500 MG TABLET PO SCH (19:36)
[2020-06-02] MEDS: Isosorbide MONOnitrate (24 HR) 60 MG TAB.ER.24H PO SCH (19:38)
[2020-06-02] MEDS ORDERED: carvediloL 25 MG TABLET PO ONE (19:45)
[2020-06-02] MEDS ORDERED: hydrALAZINE 25 MG TABLET PO SCH (21:00)
[2020-06-02] MEDS ORDERED: carvediloL 6.25 MG TABLET PO SCH (21:00)
[2020-06-02] MEDS ORDERED: 0.9 % Sodium Chloride 250 ML IV ONE (23:14)
[2020-06-02] MEDS ORDERED: *HR* Amiodarone 200 MG TABLET PO ONE (23:30)
[2020-06-02] MEDS: Acetaminophen 325 MG TABLET PO PRN (23:33)
[2020-06-03] MEDS ORDERED: *HR* Amiodarone 200 MG TABLET PO ONE ×2 (02:00→23:11)
[2020-06-03 06:54] LABS: BUN/Creatinine Ratio 27 (6-26); Blood Urea Nitrogen 48 mg/dL (8-23); Carbon Dioxide 25 mEq/L (23-29); Chloride 91 mEq/L (98-107); Sodium 123 mEq/L (136-145); eGFR For African Americans 33 (> 60); eGFR For Non-African Americans 27 (> 60)
[2020-06-03] MEDS ORDERED: carvediloL 25 MG TABLET PO SCH (08:00)
[2020-06-03] MEDS: Cholecalciferol (D-3) 1,000 UNIT (25MCG) TABLET PO SCH (09:19)
[2020-06-03] MEDS: Acetaminophen 325 MG TABLET PO PRN (09:20)
[2020-06-03] MEDS: Metoprolol XL (24 HR) Succ 50 MG TAB.ER.24H PO SCH (09:20)
[2020-06-03] MEDS ORDERED: Ondansetron 4 MG/2 ML VIAL IVP PRN (09:28)
[2020-06-03] MEDS: Insulin NPH/REG 70/30 100 UNIT/ML (x5UNIT) SQ SCH ×2 (09:29→20:45)
[2020-06-03] MEDS: Furosemide 40 MG TABLET PO SCH ×2 (09:44→12:58)
[2020-06-03] MEDS: Letrozole 2.5 MG TABLET PO SCH (09:44)
[2020-06-03] MEDS: Aspirin Enteric Coated 81 MG Tablet PO SCH (09:44)
[2020-06-03] MEDS: Ascorbic Acid 500 MG TABLET PO SCH ×2 (09:45→20:47)
[2020-06-03] MEDS ORDERED: Furosemide 20 MG/2 ML VIAL IVP ONE (11:06)
[2020-06-03] MEDS ORDERED: Furosemide 20 MG/2 ML VIAL IVP SCH (17:00)
[2020-06-03] MEDS: *HR* LORazepam 1 MG TABLET PO PRN (18:23)
[2020-06-03] MEDS ORDERED: carvediloL 25 MG TABLET PO ONE ×2 (19:18)
[2020-06-04 04:09] LABS: Basophils % 0.3 %; Eosinophils % 0.3 %; Hematocrit 27.7 % (35.3-44.9); Hemoglobin 8.9 g/dL (11.5-15.4); Immature Granulocytes % 0.5 % (0-4); Lymphocytes # 0.8 K/mcL (0.6-4.6); Lymphocytes % 12.2 %; Mean Corpuscular HGB Conc 32.1 g/dL (31.6-35.5); Mean Corpuscular Hemoglobin 27.8 pg (28.0-33.3); Mean Corpuscular Volume 86.6 fL (83.0-100.0); Mean Platelet Volume 10.1 fL (9.4-12.4); Monocytes # 0.7 K/mcL (0.0-1.3); Monocytes % 11.4 %; Neutrophils # 4.8 K/mcL (1.6-8.9); Nucleated Red Blood Cells 0.3 /100 WBC (0); Platelet Count 258 K/mcL (140-400); Red Cell Distribution Width 14.3 % (11.5-14.5); Segmented Neutrophils % 75.3 %; White Blood Count 6.4 K/mcL (4.3-11.1)
[2020-06-04 04:33] LABS: Calcium 8.4 mg/dL (8.6-10.3); Potassium 4.2 mEq/L (3.5-5.1)
[2020-06-04] MEDS ORDERED: *HR* Dextrose 50 % in Water (Vial) 50 ML VIAL IVP PRN (05:18)
[2020-06-04] MEDS ORDERED: D5% in Water 1,000 ML IVC PRN (05:18)
[2020-06-04] MEDS ORDERED: Dextrose Gel 15 GM/37.5 ML TUBE PO PRN ×2 (05:18)
[2020-06-04 07:25] LABS: Calcium 8.5 mg/dL (8.6-10.3); Potassium 4.4 mEq/L (3.5-5.1)
[2020-06-04] MEDS: Ipratropium/Albuterol Neb 3 ML IH SCH ×4 (07:37→19:58)
[2020-06-04] MEDS: Cholecalciferol (D-3) 1,000 UNIT (25MCG) TABLET PO SCH (08:35)
[2020-06-04] MEDS: Metoprolol XL (24 HR) Succ 50 MG TAB.ER.24H PO SCH (08:35)
[2020-06-04] MEDS: Acetaminophen 325 MG TABLET PO PRN (08:35)
[2020-06-04] MEDS: Ascorbic Acid 500 MG TABLET PO SCH ×2 (08:35→20:48)
[2020-06-04] MEDS: *HR* LORazepam 1 MG TABLET PO PRN ×2 (08:35→20:45)
[2020-06-04] MEDS: Aspirin Enteric Coated 81 MG Tablet PO SCH (08:35)
[2020-06-04] MEDS: Letrozole 2.5 MG TABLET PO SCH (08:35)
[2020-06-04] MEDS: Furosemide 40 MG/4 ML VIAL IVP SCH ×2 (08:36→20:47)
[2020-06-04] MEDS: Insulin NPH/REG 70/30 100 UNIT/ML (x5UNIT) SQ SCH ×2 (08:36→17:11)
[2020-06-04 08:39] LABS: Bilirubin,Urine Negative (Negative); Blood,Urine Negative (Negative); Clarity,Urine Clear (Clear); Color,Urine Light-Yellow (Yellow); Glucose,Urine (UA) Normal (Normal); Ketones,Urine Negative (Negative); Leukocyte Esterase,Urine Trace (Negative); Mucus,Urine Few per lpf (None-Few); Nitrite,Urine Negative (Negative); PH,Urine 5.5 pH Units (5.0-8.0); Protein,Urine Negative (Neg-Trace); RBC,Urine 0-3 per hpf (0-3); Specific Gravity,Urine 1.016 (1.010-1.025); Squamous Epithelial Cell,Urine Few per hpf (None-Few); Urobilinogen,Urine Normal (Normal); WBC,Urine 0-3 per hpf (0-3)
[2020-06-04] MEDS ORDERED: Tolvaptan 15 MG TABLET PO ONE (08:55)
[2020-06-04 09:46] LABS: Calcium 8.4 mg/dL (8.6-10.3); Potassium 4.1 mEq/L (3.5-5.1)
[2020-06-04 12:29] LABS: Calcium 8.6 mg/dL (8.6-10.3); Potassium 4.7 mEq/L (3.5-5.1)
[2020-06-04 14:31] LABS: Calcium 8.5 mg/dL (8.6-10.3)
[2020-06-04] MEDS: *HR* OxyCODONE/APAP 5/325 TABLET PO PRN (17:11)
[2020-06-04] MEDS: *HR* Heparin 5,000 UNIT/ML VIAL SQ SCH (17:12)
[2020-06-05] MEDS: Ipratropium/Albuterol Neb 3 ML IH SCH ×6 (00:02→20:14)
[2020-06-05 03:07] LABS: Hemoglobin 8.5 g/dL (11.5-15.4); Mean Corpuscular HGB Conc 31.5 g/dL (31.6-35.5); Mean Corpuscular Volume 85.7 fL (83.0-100.0); Mean Platelet Volume 10.2 fL (9.4-12.4); Platelet Count 257 K/mcL (140-400); Red Blood Count 3.15 M/mcL (3.82-4.97); Red Cell Distribution Width 14.6 % (11.5-14.5); White Blood Count 6.7 K/mcL (4.3-11.1)
[2020-06-05 03:20] LABS: Calcium 8.1 mg/dL (8.6-10.3)
[2020-06-05] MEDS: *HR* Heparin 5,000 UNIT/ML VIAL SQ SCH ×2 (05:27→17:28)
[2020-06-05] MEDS: Insulin NPH/REG 70/30 100 UNIT/ML (x5UNIT) SQ SCH ×2 (07:43→17:28)
[2020-06-05] MEDS: Cholecalciferol (D-3) 1,000 UNIT (25MCG) TABLET PO SCH (08:42)
[2020-06-05] MEDS: Metoprolol XL (24 HR) Succ 50 MG TAB.ER.24H PO SCH (08:43)
[2020-06-05] MEDS: *HR* OxyCODONE/APAP 5/325 TABLET PO PRN (08:43)
[2020-06-05] MEDS: Ascorbic Acid 500 MG TABLET PO SCH ×2 (08:43→19:22)
[2020-06-05] MEDS: Letrozole 2.5 MG TABLET PO SCH (08:44)
[2020-06-05] MEDS: Furosemide 40 MG/4 ML VIAL IVP SCH (08:44)
[2020-06-05] MEDS: Aspirin Enteric Coated 81 MG Tablet PO SCH (08:44)
[2020-06-05] MEDS ORDERED: GuaiFENesin Liq 200 MG/10 ML UDC PO PRN (15:22)
[2020-06-05] MEDS: Furosemide 40 MG TABLET PO SCH (16:12)
[2020-06-05 17:40] LABS: Adenovirus Not Detected (Not Detect); Bordetella Pertussis Not Detected (Not Detect); Chlamydophila pneumoniae Not Detected (Not Detect); Coronavirus 229E Not Detected (Not Detect); Coronavirus HKU1 Not Detected (Not Detect); Coronavirus NL63 Not Detected (Not Detect); Coronavirus OC43 Not Detected (Not Detect); Human Metapneumovirus Not Detected (Not Detect); Human Rhinovirus/Enterovirus Not Detected (Not Detect); Influenza A Subtype 2009 H1 Not Detected (Not Detect); Influenza B Not Detected (Not Detect); Mycoplasma pneumoniae Not Detected (Not Detect); Parainfluenza Virus 1 Not Detected (Not Detect); Parainfluenza Virus 2 Not Detected (Not Detect); Parainfluenza Virus 3 Not Detected (Not Detect); Parainfluenza Virus 4 Not Detected (Not Detect); Respiratory Syncytial Virus Not Detected (Not Detect); SARS-CoV-2 Not Detected (Not Detect)
[2020-06-05] MEDS: *HR* LORazepam 1 MG TABLET PO PRN (19:21)
[2020-06-05] MEDS: Insulin LISPRO 300 UNITS/3 ML VIAL SQ SCH (20:15)
[2020-06-05] MEDS ORDERED: 0.9 % Sodium Chloride 1,000 ML IVC SCH (20:45)
[2020-06-06] MEDS: Ipratropium/Albuterol Neb 3 ML IH SCH ×7 (00:06→23:11)
[2020-06-06] MEDS: *HR* Heparin 5,000 UNIT/ML VIAL SQ SCH ×2 (05:07→17:48)
[2020-06-06 05:27] LABS: Hematocrit 27.4 % (35.3-44.9); Hemoglobin 8.5 g/dL (11.5-15.4); Mean Corpuscular Hemoglobin 27.3 pg (28.0-33.3); Mean Corpuscular Volume 88.1 fL (83.0-100.0); Platelet Count 272 K/mcL (140-400); Red Blood Count 3.11 M/mcL (3.82-4.97); Red Cell Distribution Width 14.6 % (11.5-14.5); White Blood Count 6.6 K/mcL (4.3-11.1)
[2020-06-06 05:44] LABS: Calcium 8.4 mg/dL (8.6-10.3); Potassium 3.9 mEq/L (3.5-5.1)
[2020-06-06] MEDS: Insulin NPH/REG 70/30 100 UNIT/ML (x5UNIT) SQ SCH ×2 (08:51→17:47)
[2020-06-06] MEDS: Ascorbic Acid 500 MG TABLET PO SCH ×2 (08:56→22:11)
[2020-06-06] MEDS: Furosemide 40 MG TABLET PO SCH ×2 (08:57→17:46)
[2020-06-06] MEDS: Aspirin Enteric Coated 81 MG Tablet PO SCH (08:57)
[2020-06-06] MEDS: Letrozole 2.5 MG TABLET PO SCH (08:58)
[2020-06-06] MEDS: Cholecalciferol (D-3) 1,000 UNIT (25MCG) TABLET PO SCH (09:01)
[2020-06-06] MEDS: Insulin LISPRO 300 UNITS/3 ML VIAL SQ SCH ×4 (09:46→22:12)
[2020-06-06] MEDS: Metoprolol XL (24 HR) Succ 50 MG TAB.ER.24H PO SCH (09:48)
[2020-06-06] MEDS ORDERED: Metoprolol XL (24 HR) Succ 50 MG TAB.ER.24H PO ONE (10:38)
[2020-06-06] MEDS: Isosorbide MONOnitrate (24 HR) 60 MG TAB.ER.24H PO SCH (22:11)
[2020-06-06] MEDS: *HR* LORazepam 1 MG TABLET PO PRN (22:17)
[2020-06-06] MEDS: *HR* Metoprolol 5 MG/5 ML VIAL IVP PRN (23:18)
[2020-06-06] MEDS ORDERED: *HR* Metoprolol 5 MG/5 ML VIAL IVP ONE (23:55)
[2020-06-07] MEDS ORDERED: *HR* Digoxin 0.5 MG/2 ML AMPUL IVP ONE (00:24)
[2020-06-07 01:29] LABS: Hematocrit 26.5 % (35.3-44.9); Hemoglobin 8.2 g/dL (11.5-15.4); Mean Corpuscular HGB Conc 30.9 g/dL (31.6-35.5); Mean Corpuscular Hemoglobin 27.2 pg (28.0-33.3); Mean Platelet Volume 10.5 fL (9.4-12.4); Platelet Count 265 K/mcL (140-400); Red Blood Count 3.01 M/mcL (3.82-4.97); Red Cell Distribution Width 14.6 % (11.5-14.5)
[2020-06-07 01:40] LABS: Calcium 8.9 mg/dL (8.6-10.3); Magnesium 2.1 mg/dL (1.6-2.6); Potassium 3.7 mEq/L (3.5-5.1)
[2020-06-07] MEDS: Ipratropium/Albuterol Neb 3 ML IH SCH ×5 (03:38→20:48)
[2020-06-07] MEDS: *HR* Heparin 5,000 UNIT/ML VIAL SQ SCH ×2 (06:41→18:01)
[2020-06-07] MEDS ORDERED: Metoprolol XL (24 HR) Succ 50 MG TAB.ER.24H PO SCH ×2 (09:00→21:00)
[2020-06-07] MEDS: Letrozole 2.5 MG TABLET PO SCH (09:32)
[2020-06-07] MEDS: Cholecalciferol (D-3) 1,000 UNIT (25MCG) TABLET PO SCH (09:32)
[2020-06-07] MEDS: Aspirin Enteric Coated 81 MG Tablet PO SCH (09:32)
[2020-06-07] MEDS: Furosemide 40 MG TABLET PO SCH ×2 (09:32→18:01)
[2020-06-07] MEDS: Ascorbic Acid 500 MG TABLET PO SCH ×2 (09:33→23:29)
[2020-06-07] MEDS: Insulin LISPRO 300 UNITS/3 ML VIAL SQ SCH ×4 (09:39→23:28)
[2020-06-07] MEDS: Insulin NPH/REG 70/30 100 UNIT/ML (x5UNIT) SQ SCH ×2 (09:46→17:41)
[2020-06-07] MEDS: *HR* Metoprolol 5 MG/5 ML VIAL IVP PRN (13:32)
[2020-06-07] MEDS: *HR* LORazepam 1 MG TABLET PO PRN (23:30)
[2020-06-07] MEDS: Isosorbide MONOnitrate (24 HR) 60 MG TAB.ER.24H PO SCH (23:30)
[2020-06-07] MEDS: *HR* OxyCODONE/APAP 5/325 TABLET PO PRN (23:40)
[2020-06-08] MEDS: Ipratropium/Albuterol Neb 3 ML IH SCH ×4 (00:34→11:03)
[2020-06-08] MEDS: *HR* Heparin 5,000 UNIT/ML VIAL SQ SCH (06:37)
[2020-06-08 07:06] VITALS: BP 143/81
[2020-06-08] MEDS: Insulin LISPRO 300 UNITS/3 ML VIAL SQ SCH (07:45)
[2020-06-08] MEDS ORDERED: Metoprolol XL (24 HR) Succ 50 MG TAB.ER.24H PO SCH (09:00)
[2020-06-08] MEDS: Ascorbic Acid 500 MG TABLET PO SCH (09:45)
[2020-06-08] MEDS: Aspirin Enteric Coated 81 MG Tablet PO SCH (09:45)
[2020-06-08] MEDS: Insulin NPH/REG 70/30 100 UNIT/ML (x5UNIT) SQ SCH (09:46)
[2020-06-08] MEDS: Cholecalciferol (D-3) 1,000 UNIT (25MCG) TABLET PO SCH (09:46)
[2020-06-08] MEDS: Furosemide 40 MG TABLET PO SCH (09:46)
[2020-06-08] MEDS: Letrozole 2.5 MG TABLET PO SCH (09:47)
== END 2020-06-08 11:18 | disposition home health service (06) | DRG 242 ==
LOC: INVDIALAB 12:28 → 3BNU 16:31
PROVIDERS: ADMIT Internal Medicine Clinical Cardiac Electrophysiology; ATTEND Internal Medicine Clinical Cardiac Electrophysiology